=== PATIENT | male | born 1940 | race Caucasian/White ===

== ENCOUNTER 2018-05-10 14:30 | Inpatient (IN) | payer OTHER ==
[~2018-05-10] VITALS: Ht 180.3 cm; Wt 95.0 kg
[~2018-05-10 14:30] MED LIST: AEC81 PO; ALLO300T2 PO; AMLO2.5T3 PO; CLOP75TA14 PO; GEMF600T4 PO; METO-391 PO; OMEP20CA10 PO; PRAV40TA3 PO; RANI150T7 PO; WARF-67 PO
[2018-05-10 14:55] LABS: EOSINOPHILS % (AUTO) 1.4 % (0.0-8.0); HEMATOCRIT 54.7 % (42-54); LYMPHOCYTES % (AUTO) 20.8 % (21.0-51.0); MEAN CORPUSCULAR HEMOGLOBIN 33.7 pg (27.0-33.0); MEAN CORPUSCULAR HGB CONC 34.1 g/dL (32.0-36.0); MEAN CORPUSCULAR VOLUME 98.7 fL (79-99); MONOCYTES % (AUTO) 4.9 % (3.0-13.0); NEUTROPHILS % (AUTO) 71.9 % (40.0-77.0); PLATELET COUNT (AUTO) 158 K/uL (130-400); RED BLOOD CELL COUNT(AUTO) 5.54 MIL/uL (4.50-6.20); RED CELL DISTRIBUTION WIDTH 13.7 % (11.0-15.5); WHITE BLOOD COUNT (AUTO) 8.8 K/uL (4.8-10.8)
[2018-05-10] MEDS ORDERED: ONDANSETRON HCL 4 MG/2 ML VIAL ONE ×3 (14:56→17:00)
[2018-05-10 15:07] LABS: CREATININE 1.4 mg/dL (0.5-1.5); INR 2.32 (0.85-1.15); PARTIAL THROMBOPLASTIN TIME 45.7 SEC (26.3-35.5); POTASSIUM 4.9 mmol/L (3.5-5.1)
[2018-05-10 15:11] LABS: ALBUMIN 4.2 g/dL (3.5-5.0); BILIRUBIN,TOTAL 1.4 mg/dL (0.2-1.0); TOTAL PROTEIN, SERUM 8.5 g/dL (6.0-8.3)
[2018-05-10] MEDS ORDERED: HYDROMORPHONE 1 MG/1 ML AMP ONE ×2 (15:28→19:19)
[2018-05-10 15:37] LABS: AMYLASE 2222 U/L (25-115)
[2018-05-10 15:53] LABS: LIPASE 43712 U/L (114-286)
[2018-05-10] MEDS: SODIUM CHLORIDE 0.9% 1000ML 1,000 ML IV SCH ×2 (16:42→22:55)
[2018-05-10] MEDS ORDERED: ACETAMINOPHEN 325 MG TAB PO PRN (16:45)
[2018-05-10] MEDS ORDERED: PHARMACY COMMUNICATION MISC SCH (17:00)
[2018-05-10] MEDS: METRONIDAZOLE 500MG/100ML BAG 100 ML IV SCH (17:00)
[2018-05-10] MEDS ORDERED: SODIUM CHLORIDE 0.9% 1000ML 1,000 ML IV ONE (17:12)
[2018-05-10] MEDS ORDERED: LEVOFLOXACIN 500 MG/D5W 100 ML 100 ML ONE (17:12)
[2018-05-10] MEDS ORDERED: PROMETHAZINE HCL 25 MG/ML 1ML AMPULE IM ONE (17:13)
[2018-05-10 17:30] LABS: CREATINE KINASE, TOTAL 65 U/L (21-232); MYOGLOBIN 98 ng/mL (10-92); TROPONIN I < 0.04 ng/mL (0.00-0.06)
[2018-05-10] MEDS: LEVOFLOXACIN 500 MG/D5W 100 ML 100 ML IV SCH (18:00)
[2018-05-10] MEDS ORDERED: ONDANSETRON HCL 4 MG/2 ML VIAL IVP PRN (19:45)
[2018-05-10 20:09] VITALS: BP 128/68
[2018-05-10] MEDS: METOPROLOL TARTRATE 50 MG TAB PO SCH ×2 (20:40→21:00)
[2018-05-11] VITALS (7 sets, daily range): BP systolic 100–134; BP diastolic 61–75
[2018-05-11 01:29] LABS: CREATINE KINASE, TOTAL 146 U/L (21-232); MYOGLOBIN 480 ng/mL (10-92); TROPONIN I < 0.04 ng/mL (0.00-0.06)
[2018-05-11] MEDS: MORPHINE SULFATE 5 MG/ML VIAL IV PRN (01:43)
[2018-05-11] MEDS: METRONIDAZOLE 500MG/100ML BAG 100 ML IV SCH ×3 (01:43→16:57)
[2018-05-11] MEDS: SODIUM CHLORIDE 0.9% 1000ML 1,000 ML IV SCH ×2 (05:34→12:18)
[2018-05-11] MEDS: HEPARIN 25000 UNITS/250 ML D5W 250 ML IV PRN (07:31)
[2018-05-11] MEDS ORDERED: AMLODIPINE BESYLATE 5 MG TAB PO ONE (07:33)
[2018-05-11 07:52] LABS: BASOPHILS % (AUTO) 0.1 % (0.0-5.0); HEMATOCRIT 49.8 % (42-54); LYMPHOCYTES % (AUTO) 2.8 % (21.0-51.0); MEAN CORPUSCULAR HEMOGLOBIN 32.4 pg (27.0-33.0); MEAN CORPUSCULAR HGB CONC 32.6 g/dL (32.0-36.0); MEAN CORPUSCULAR VOLUME 99.2 fL (79-99); MONOCYTES % (AUTO) 6.2 % (3.0-13.0); NEUTROPHILS % (AUTO) 90.9 % (40.0-77.0); PLATELET COUNT (AUTO) 110 K/uL (130-400); RED BLOOD CELL COUNT(AUTO) 5.02 MIL/uL (4.50-6.20); WHITE BLOOD COUNT (AUTO) 18.2 K/uL (4.8-10.8)
[2018-05-11 08:09] LABS: INR 1.97 (0.85-1.15); PARTIAL THROMBOPLASTIN TIME 43.3 SEC (26.3-35.5); PROTHROMBIN TIME 20.4 SEC (9.6-11.6)
[2018-05-11] MEDS: ALLOPURINOL 300 MG TABLET PO SCH (08:11)
[2018-05-11] MEDS: ATORVASTATIN CALCIUM 10 MG TABLET PO SCH (08:11)
[2018-05-11] MEDS: PANTOPRAZOLE SODIUM 40 MG TABLET.DR PO SCH (08:11)
[2018-05-11 08:12] LABS: CRP QUANTITATIVE 170.7 mg/L (0.00-9.0)
[2018-05-11] MEDS: AMLODIPINE BESYLATE 2.5 MG TAB PO SCH (08:12)
[2018-05-11] MEDS: METOPROLOL TARTRATE 50 MG TAB PO SCH ×2 (08:12→21:00)
[2018-05-11 08:24] LABS: ALBUMIN 3.3 g/dL (3.5-5.0); BILIRUBIN,TOTAL 1.4 mg/dL (0.2-1.0); CREATININE 2.2 mg/dL (0.5-1.5); POTASSIUM 4.1 mmol/L (3.5-5.1); TOTAL PROTEIN, SERUM 6.9 g/dL (6.0-8.3)
[2018-05-11 08:46] LABS: CREATINE KINASE, TOTAL 164 U/L (21-232); MYOGLOBIN 255 ng/mL (10-92); TROPONIN I < 0.04 ng/mL (0.00-0.06)
[2018-05-11 08:58] LABS: MAGNESIUM 1.2 mg/dL (1.80-2.40)
[2018-05-11 09:06] LABS: BAND NEUTROPHILS % (MANUAL) 23 % (0-2); LYMPHOCYTES % (MANUAL) 2 % (22-44); MAN.DIFF COMMENT-IMPRESSION MANUAL DIFFERENTIAL; MONOCYTES % (MANUAL) 8 % (2-9); PLATELET MORPHOLOGY COMMENT SLIGHTLY DECREASED; REACTIVE LYMPHOCYTES 2 % (0-0); SEGMENTED NEUTROPHILS % 65 % (40-70)
[2018-05-11] MEDS: RANITIDINE HCL 15 MG/1 ML PO SCH (09:29)
[2018-05-11] MEDS ORDERED: POTASSIUM CHLORIDE 20 MEQ ERTAB PO PRN (12:15)
[2018-05-11] MEDS ORDERED: POTASSIUM CHLORIDE 10MEQ/100ML 100 ML IV PRN ×2 (12:15)
[2018-05-11] MEDS ORDERED: POTASSIUM CHLORIDE 10% ELIXIR 20 MEQ/15 ML UDCUP PO PRN (12:15)
[2018-05-11] MEDS ORDERED: LIDOCAINE HCL-MPF 1% 2ML VIAL IVP PRN ×2 (12:15)
[2018-05-11] MEDS: ONDANSETRON HCL 4 MG/2 ML VIAL IV PRN (13:10)
[2018-05-11 16:53] LABS: CREATININE 2.1 mg/dL (0.5-1.5); MAGNESIUM 1.4 mg/dL (1.80-2.40); PHOSPHORUS 4.3 mg/dL (2.5-4.9); POTASSIUM 4.5 mmol/L (3.5-5.1)
[2018-05-11] MEDS: LEVOFLOXACIN 500 MG/D5W 100 ML 100 ML IV SCH (17:52)
[2018-05-11] MEDS: MAGNESIUM 2GM PREMIX 50ML 50 ML IV PRN (19:01)
[2018-05-12] MEDS: METRONIDAZOLE 500MG/100ML BAG 100 ML IV SCH ×3 (01:11→16:15)
[2018-05-12] MEDS: MORPHINE SULFATE 5 MG/ML VIAL IV PRN ×3 (01:12→16:21)
[2018-05-12 02:19] LABS: CREATININE 1.8 mg/dL (0.5-1.5); PHOSPHORUS 2.6 mg/dL (2.5-4.9); POTASSIUM 4.1 mmol/L (3.5-5.1)
[2018-05-12] MEDS: SODIUM CHLORIDE 0.9% 1000ML 1,000 ML IV SCH ×3 (03:00→09:53)
[2018-05-12 04:35] VITALS: BP 120/76
[2018-05-12 08:03] VITALS: BP 133/74
[2018-05-12 08:31] LABS: CRP QUANTITATIVE 253.3 mg/L (0.00-9.0)
[2018-05-12] MEDS: AMLODIPINE BESYLATE 2.5 MG TAB PO SCH (09:00)
[2018-05-12] MEDS: RANITIDINE HCL 15 MG/1 ML PO SCH (09:00)
[2018-05-12] MEDS: PANTOPRAZOLE SODIUM 40 MG TABLET.DR PO SCH ×2 (09:00→21:36)
[2018-05-12] MEDS: ALLOPURINOL 300 MG TABLET PO SCH (09:00)
[2018-05-12] MEDS: METOPROLOL TARTRATE 50 MG TAB PO SCH ×2 (09:00→21:36)
[2018-05-12] MEDS: ATORVASTATIN CALCIUM 10 MG TABLET PO SCH (09:00)
[2018-05-12 12:05] VITALS: BP 122/75
[2018-05-12 16:00] VITALS: BP 115/74
[2018-05-12 17:08] LABS: CREATININE 1.5 mg/dL (0.5-1.5); MAGNESIUM 1.9 mg/dL (1.80-2.40); PHOSPHORUS 2.6 mg/dL (2.5-4.9); POTASSIUM 4.3 mmol/L (3.5-5.1)
[2018-05-12] MEDS: LEVOFLOXACIN 500 MG/D5W 100 ML 100 ML IV SCH (18:12)
[2018-05-12] MEDS: MAGNESIUM 2GM PREMIX 50ML 50 ML IV PRN (18:12)
[2018-05-12 19:59] VITALS: BP 149/84
[2018-05-12] MEDS: ONDANSETRON HCL 4 MG/2 ML VIAL IV PRN (21:36)
[2018-05-12] MEDS: HEPARIN 25000 UNITS/250 ML D5W 250 ML IV PRN (22:33)
[2018-05-13] VITALS: BP 153/78
[2018-05-13] MEDS: SODIUM CHLORIDE 0.9% 1000ML 1,000 ML IV SCH ×3 (00:45→18:17)
[2018-05-13] MEDS: METRONIDAZOLE 500MG/100ML BAG 100 ML IV SCH ×3 (01:03→17:16)
[2018-05-13 03:27] LABS: HEMATOCRIT 44.1 % (42-54); MEAN CORPUSCULAR HEMOGLOBIN 32.9 pg (27.0-33.0); MEAN CORPUSCULAR HGB CONC 33.5 g/dL (32.0-36.0); MEAN CORPUSCULAR VOLUME 98.1 fL (79-99); NUCLEATED RED BLOOD CELLS 0.1 % (0.0-0.19); PLATELET COUNT (AUTO) 99 K/uL (130-400); RED CELL DISTRIBUTION WIDTH 13.6 % (11.0-15.5)
[2018-05-13 03:30] LABS: ALBUMIN 2.9 g/dL (3.5-5.0); BILIRUBIN,TOTAL 0.8 mg/dL (0.2-1.0); CREATININE 1.2 mg/dL (0.5-1.5); MAGNESIUM 2.1 mg/dL (1.80-2.40); PHOSPHORUS 2.6 mg/dL (2.5-4.9); TOTAL PROTEIN, SERUM 6.8 g/dL (6.0-8.3)
[2018-05-13 03:31] LABS: INR 1.14 (0.85-1.15); PARTIAL THROMBOPLASTIN TIME 48.1 SEC (26.3-35.5); PROTHROMBIN TIME 11.9 SEC (9.6-11.6)
[2018-05-13 04:00] VITALS: BP 139/76
[2018-05-13 06:39] LABS: CRP QUANTITATIVE 166.2 mg/L (0.00-9.0)
[2018-05-13 08:18] VITALS: BP 134/84
[2018-05-13] MEDS: METOPROLOL TARTRATE 50 MG TAB PO SCH (09:11)
[2018-05-13] MEDS: ATORVASTATIN CALCIUM 10 MG TABLET PO SCH (09:11)
[2018-05-13] MEDS: RANITIDINE HCL 15 MG/1 ML PO SCH (09:11)
[2018-05-13] MEDS: PANTOPRAZOLE SODIUM 40 MG TABLET.DR PO SCH ×2 (09:12→20:35)
[2018-05-13] MEDS: AMLODIPINE BESYLATE 2.5 MG TAB PO SCH (09:12)
[2018-05-13] MEDS: ALLOPURINOL 300 MG TABLET PO SCH (09:12)
[2018-05-13 12:05] VITALS: BP 138/74
[2018-05-13 16:00] VITALS: BP 133/72
[2018-05-13 16:14] LABS: CREATININE 1.1 mg/dL (0.5-1.5); MAGNESIUM 1.8 mg/dL (1.80-2.40); PHOSPHORUS 2.4 mg/dL (2.5-4.9)
[2018-05-13] MEDS: LEVOFLOXACIN 500 MG/D5W 100 ML 100 ML IV SCH (18:16)
[2018-05-13 20:00] VITALS: BP 139/80
[2018-05-13] MEDS: HEPARIN 25000 UNITS/250 ML D5W 250 ML IV PRN (20:12)
[2018-05-13] MEDS: ONDANSETRON HCL 4 MG/2 ML VIAL IV PRN (20:33)
[2018-05-13] MEDS: MORPHINE SULFATE 5 MG/ML VIAL IV PRN (20:49)
[2018-05-14] VITALS (27 sets, daily range): BP systolic 127–171; BP diastolic 62–89
[2018-05-14] MEDS: METOPROLOL TARTRATE 50 MG TAB PO SCH ×3 (00:18→23:20)
[2018-05-14] MEDS: METRONIDAZOLE 500MG/100ML BAG 100 ML IV SCH ×3 (01:41→17:04)
[2018-05-14] MEDS: SODIUM CHLORIDE 0.9% 1000ML 1,000 ML IV SCH ×3 (01:41→15:03)
[2018-05-14 04:02] LABS: BASOPHILS % (AUTO) 0.5 % (0.0-5.0); EOSINOPHILS % (AUTO) 1.2 % (0.0-8.0); HEMATOCRIT 42.3 % (42-54); LYMPHOCYTES % (AUTO) 16.2 % (21.0-51.0); MEAN CORPUSCULAR HEMOGLOBIN 33.5 pg (27.0-33.0); MEAN CORPUSCULAR HGB CONC 34.1 g/dL (32.0-36.0); MEAN CORPUSCULAR VOLUME 98.3 fL (79-99); MONOCYTES % (AUTO) 7.1 % (3.0-13.0); NUCLEATED RED BLOOD CELLS 0.1 % (0.0-0.19); PLATELET COUNT (AUTO) 108 K/uL (130-400); RED CELL DISTRIBUTION WIDTH 13.8 % (11.0-15.5); WHITE BLOOD COUNT (AUTO) 6.2 K/uL (4.8-10.8)
[2018-05-14 04:15] LABS: INR 1.05 (0.85-1.15); PARTIAL THROMBOPLASTIN TIME 33.4 SEC (26.3-35.5)
[2018-05-14 04:21] LABS: ALBUMIN 2.7 g/dL (3.5-5.0); BILIRUBIN,TOTAL 0.7 mg/dL (0.2-1.0); MAGNESIUM 1.5 mg/dL (1.80-2.40); PHOSPHORUS 2.5 mg/dL (2.5-4.9); POTASSIUM 3.7 mmol/L (3.5-5.1); TOTAL PROTEIN, SERUM 6.2 g/dL (6.0-8.3)
[2018-05-14] MEDS: MAGNESIUM 2GM PREMIX 50ML 50 ML IV PRN ×2 (04:58→17:21)
[2018-05-14 06:44] LABS: CRP QUANTITATIVE 81.1 mg/L (0.00-9.0)
[2018-05-14] MEDS ORDERED: LACTATED RINGERS 1000ML 1,000 ML IV ONE (09:01)
[2018-05-14] MEDS ORDERED: LIDOCAINE PF 2% 5ML ABBOJECT ONE (09:30)
[2018-05-14] MEDS ORDERED: DEXAMETHASONE SOD PHOSPHATE 10MG/ML 1ML VIAL ONE (09:30)
[2018-05-14] MEDS ORDERED: MIDAZOLAM HCL 1 MG/ML 2ML VIAL ONE (09:31)
[2018-05-14] MEDS ORDERED: FENTANYL CITRATE PF 50 MCG/1 ML 2ML VIAL ONE (09:31)
[2018-05-14] MEDS ORDERED: ROCURONIUM 10MG/1ML SYR 10 MG/ML ML ONE (09:31)
[2018-05-14] MEDS ORDERED: NEOSTIGMINE 5MG/5ML SYR IV ONE (09:31)
[2018-05-14] MEDS ORDERED: ONDANSETRON HCL 4 MG/2 ML VIAL ONE (09:31)
[2018-05-14] MEDS ORDERED: PROPOFOL 10 MG/ML 20ML VIAL IV ONE (09:31)
[2018-05-14] MEDS ORDERED: BUPIVACAINE/PF 0.25% 30ML VIAL IJ ONE (09:53)
[2018-05-14] MEDS ORDERED: LIDOCAINE 1%-EPI 1:100,000 20 ML VIAL IJ ONE (09:53)
[2018-05-14] MEDS ORDERED: GLYCOPYRROLATE 1 MG/5 ML SYRINGE ONE (10:27)
[2018-05-14] MEDS ORDERED: MEPERIDINE-PF 25 MG/ML SYG ONE ×2 (10:48→11:06)
[2018-05-14] MEDS ORDERED: IPRATROPIUM/ALBUTEROL SULFATE 3 ML SOLUTION IH ONE (10:48)
[2018-05-14] MEDS: PANTOPRAZOLE SODIUM 40 MG TABLET.DR PO SCH ×2 (14:13→23:20)
[2018-05-14] MEDS: RANITIDINE HCL 15 MG/1 ML PO SCH (14:13)
[2018-05-14] MEDS: AMLODIPINE BESYLATE 2.5 MG TAB PO SCH (14:16)
[2018-05-14] MEDS: ALLOPURINOL 300 MG TABLET PO SCH (14:17)
[2018-05-14] MEDS: ATORVASTATIN CALCIUM 10 MG TABLET PO SCH (14:17)
[2018-05-14 16:48] LABS: CREATININE 1.1 mg/dL (0.5-1.5); MAGNESIUM 1.6 mg/dL (1.80-2.40); PHOSPHORUS 3.3 mg/dL (2.5-4.9)
[2018-05-14] MEDS: LEVOFLOXACIN 500 MG/D5W 100 ML 100 ML IV SCH (17:04)
[2018-05-15] MEDS: METRONIDAZOLE 500MG/100ML BAG 100 ML IV SCH ×3 (01:35→20:14)
[2018-05-15 04:00] VITALS: BP 142/79
[2018-05-15] MEDS: SODIUM CHLORIDE 0.9% 1000ML 1,000 ML IV SCH (05:12)
[2018-05-15 08:10] VITALS: BP 151/87
[2018-05-15] MEDS: OXYCODONE/ACETAMIN 5/325MG TAB PO PRN ×2 (09:01→13:49)
[2018-05-15] MEDS: PANTOPRAZOLE SODIUM 40 MG TABLET.DR PO SCH ×2 (09:01→20:19)
[2018-05-15] MEDS: AMLODIPINE BESYLATE 2.5 MG TAB PO SCH (09:02)
[2018-05-15] MEDS: ATORVASTATIN CALCIUM 10 MG TABLET PO SCH (09:02)
[2018-05-15] MEDS: ALLOPURINOL 300 MG TABLET PO SCH (09:02)
[2018-05-15] MEDS: RANITIDINE HCL 15 MG/1 ML PO SCH (09:02)
[2018-05-15] MEDS: METOPROLOL TARTRATE 50 MG TAB PO SCH ×2 (09:02→20:19)
[2018-05-15 11:37] VITALS: BP 144/99
[2018-05-15 16:45] VITALS: BP 131/68
[2018-05-15] MEDS: LUBIPROSTONE 24 MCG CAP PO SCH ×2 (17:00→17:59)
[2018-05-15] MEDS ORDERED: WARFARIN SODIUM 2 MG TAB PO ONE (18:15)
[2018-05-15 19:34] VITALS: BP 134/72
[2018-05-15] MEDS: LEVOFLOXACIN 500 MG/D5W 100 ML 100 ML IV SCH (20:14)
[2018-05-15] MEDS: ENOXAPARIN SODIUM 100 MG/1 ML SQ SCH (20:14)
[2018-05-15] MEDS: MORPHINE SULFATE 5 MG/ML VIAL IV PRN (22:53)
[2018-05-15 23:31] VITALS: BP 131/66
[2018-05-16 03:28] VITALS: BP 148/76
[2018-05-16 03:56] LABS: INR 1.06 (0.85-1.15); PROTHROMBIN TIME 11.1 SEC (9.6-11.6)
[2018-05-16] MEDS: METRONIDAZOLE 500MG/100ML BAG 100 ML IV SCH ×3 (05:55→21:16)
[2018-05-16 08:10] VITALS: BP 156/85
[2018-05-16] MEDS: LUBIPROSTONE 24 MCG CAP PO SCH ×2 (08:18→16:35)
[2018-05-16] MEDS: AMLODIPINE BESYLATE 2.5 MG TAB PO SCH (08:19)
[2018-05-16] MEDS: ALLOPURINOL 300 MG TABLET PO SCH (08:19)
[2018-05-16] MEDS: ATORVASTATIN CALCIUM 10 MG TABLET PO SCH (08:19)
[2018-05-16] MEDS: RANITIDINE HCL 15 MG/1 ML PO SCH (08:19)
[2018-05-16] MEDS: METOPROLOL TARTRATE 50 MG TAB PO SCH ×2 (08:19→21:15)
[2018-05-16] MEDS: PANTOPRAZOLE SODIUM 40 MG TABLET.DR PO SCH ×2 (08:19→21:15)
[2018-05-16] MEDS: ENOXAPARIN SODIUM 100 MG/1 ML SQ SCH ×2 (08:21→21:16)
[2018-05-16 11:37] VITALS: BP 122/79
[2018-05-16] MEDS ORDERED: WARFARIN SODIUM 2 MG TAB PO SCH (16:00)
[2018-05-16 16:14] VITALS: BP 141/75
[2018-05-16] MEDS: OXYCODONE/ACETAMIN 5/325MG TAB PO PRN (16:35)
[2018-05-16] MEDS: WARFARIN SODIUM 2 MG TAB PO SCH (16:35)
[2018-05-16] MEDS: IPRATROPIUM/ALBUTEROL SULFATE 3 ML SOLUTION IH SCH (18:39)
[2018-05-16 19:54] VITALS: BP 117/72
[2018-05-16] MEDS: GEMFIBROZIL 600 MG TABLET PO SCH (21:16)
[2018-05-16] MEDS: LEVOFLOXACIN 500 MG/D5W 100 ML 100 ML IV SCH (21:16)
[2018-05-16 23:51] VITALS: BP 121/89
[2018-05-17] MEDS: IPRATROPIUM/ALBUTEROL SULFATE 3 ML SOLUTION IH SCH ×4 (00:02→18:00)
[2018-05-17 04:03] VITALS: BP 127/73
[2018-05-17] MEDS: METRONIDAZOLE 500MG/100ML BAG 100 ML IV SCH ×2 (05:06→13:48)
[2018-05-17 08:04] VITALS: BP 133/73
[2018-05-17] MEDS ORDERED: ASPIRIN 81 MG EC TAB PO SCH (09:00)
[2018-05-17] MEDS: METOPROLOL TARTRATE 50 MG TAB PO SCH (09:49)
[2018-05-17] MEDS: PANTOPRAZOLE SODIUM 40 MG TABLET.DR PO SCH (09:49)
[2018-05-17] MEDS: GEMFIBROZIL 600 MG TABLET PO SCH (09:49)
[2018-05-17] MEDS: LUBIPROSTONE 24 MCG CAP PO SCH ×2 (09:49→17:48)
[2018-05-17] MEDS: AMLODIPINE BESYLATE 2.5 MG TAB PO SCH (09:49)
[2018-05-17] MEDS: ALLOPURINOL 300 MG TABLET PO SCH (09:50)
[2018-05-17] MEDS: RANITIDINE HCL 15 MG/1 ML PO SCH (09:50)
[2018-05-17] MEDS: ENOXAPARIN SODIUM 100 MG/1 ML SQ SCH (09:54)
[2018-05-17 11:33] VITALS: BP 119/75
[2018-05-17 16:29] VITALS: BP 135/81
[2018-05-17] MEDS: WARFARIN SODIUM 2 MG TAB PO SCH (17:51)
[2018-05-17] MEDS ORDERED: TRAM50TA4 PO (18:11)
[2018-05-17] MEDS ORDERED: ATORVASTATIN CALCIUM 10 MG TABLET PO SCH (21:00)
[2018-05-18] MEDS ORDERED: CLOPIDOGREL BISULFATE 75 MG TAB PO SCH (09:00)
== END 2018-05-17 19:55 | disposition home or self-care (01) | DRG 417 ==
LOC: EDH 14:30 → EDHIP 16:40 → 2BH 19:39 → 2DH 05-11 15:13
PROVIDERS: ADMIT Internal Medicine; ATTEND Internal Medicine
PROC: 3E0234Z Introduction of Serum, Toxoid and Vaccine into Muscle, Percutaneous Approach (ICD-10-PCS; 2018-05-14)
PROC: 0FT44ZZ Resection of Gallbladder, Percutaneous Endoscopic Approach (ICD-10-PCS; principal; 2018-05-14 09:51)
PROC: 0WQF4ZZ Repair Abdominal Wall, Percutaneous Endoscopic Approach (ICD-10-PCS; 2018-05-14 09:51)
DX: K85.10 Biliary acute pancreatitis without necrosis or infection (principal); R65.11 Systemic inflammatory response syndrome (SIRS) of non-infectious origin with acute organ dysfunction; N17.9 Acute kidney failure, unspecified; J96.11 Chronic respiratory failure with hypoxia; J98.11 Atelectasis; K56.7 Ileus, unspecified; K91.89 Other postprocedural complications and disorders of digestive system; K80.20 Calculus of gallbladder without cholecystitis without obstruction; K82.8 Other specified diseases of gallbladder; E86.1 Hypovolemia; N18.3 Chronic kidney disease, stage 3 (moderate); I12.9 Hypertensive chronic kidney disease with stage 1 through stage 4 chronic kidney disease, or unspecified chronic kidney disease; I25.10 Atherosclerotic heart disease of native coronary artery without angina pectoris; D69.6 Thrombocytopenia, unspecified; E78.5 Hyperlipidemia, unspecified; E83.42 Hypomagnesemia; E86.0 Dehydration; G47.00 Insomnia, unspecified; I71.4 Abdominal aortic aneurysm, without rupture; I73.9 Peripheral vascular disease, unspecified; N28.1 Cyst of kidney, acquired; R79.1 Abnormal coagulation profile; Z79.01 Long term (current) use of anticoagulants; Z79.02 Long term (current) use of antithrombotics/antiplatelets; Z90.49 Acquired absence of other specified parts of digestive tract; Z87.891 Personal history of nicotine dependence; Z86.79 Personal history of other diseases of the circulatory system; Z83.3 Family history of diabetes mellitus; Z82.49 Family history of ischemic heart disease and other diseases of the circulatory system; Z23 Encounter for immunization
CPT/HCPCS: 36415; 71045; 74018; 74176; 74181; 76705; 80048; 80053; 82150; 82550; 82948; 83690; 83735; 83874; 83880; 84100; 84484; 85025; 85027; 85610; 85730; 86140; 88304; 93005; 93306; 94640; 94660; 94664; 99291; J1100; J1170; J1644; J1650; J1956; J2001; J2175; J2250; J2270; J2405; J2550; J2704; J2710; J3010; J3475; J3490; J7030; J7120; Q2038

== ENCOUNTER → 2019-05-26 | Outpatient (CLI) | payer OTHER ==
[~2019-05-26] MED LIST changes: -AMLO2.5T3 PO; +AMLO2.5T4 PO; -GEMF600T4 PO; +GEMF600T5 PO; +OMEP-50 PO; -OMEP20CA10 PO; +TRAM50TA4 PO
== END | disposition home or self-care (01) ==
LOC: SHCH 08:56
PROVIDERS: ATTEND Internal Medicine Cardiovascular Disease
DX: I65.23 Occlusion and stenosis of bilateral carotid arteries (principal); I11.9 Hypertensive heart disease without heart failure; I08.8 Other rheumatic multiple valve diseases
CPT/HCPCS: 93306; 93880

== ENCOUNTER → 2020-05-17 | Outpatient (CLI) | payer OTHER ==
[~2020-05-17] MED LIST changes: -OMEP-50 PO; +OMEP20CA12 PO
== END | disposition home or self-care (01) ==
LOC: SHCH 08:34
PROVIDERS: ATTEND Internal Medicine Cardiovascular Disease
DX: I71.4 Abdominal aortic aneurysm, without rupture (principal)
CPT/HCPCS: 93978

== ENCOUNTER 2021-03-09 03:54 | Emergency (ER) | payer OTHER ==
[~2021-03-09] VITALS: Ht 182.9 cm; Wt 97.5 kg
[2021-03-09] VITALS (9 sets, daily range): BP systolic 152–184; BP diastolic 81–93
[~2021-03-09 03:54] MED LIST changes: -GEMF600T5 PO; +GEMF600T89 PO
[2021-03-09 05:07] LABS: ABG BASE EXCESS -4.6 mmol/L (-2.0-3.0); ABG HCO3 19.6 mmol/L (21.0-28.0); ABG OXYGEN SATURATION 93.4 % (95.0-99.0); ABG PCO2 34 mmHg (35-48)
[2021-03-09 05:09] LABS: BASOPHILS % (AUTO) 1.2 % (0.0-5.0); EOSINOPHILS % (AUTO) 1.6 % (0.0-8.0); HEMATOCRIT 48.7 % (42-54); LYMPHOCYTES % (AUTO) 29.3 % (21.0-51.0); MEAN CORPUSCULAR HEMOGLOBIN 32.6 pg (27.0-33.0); MEAN CORPUSCULAR HGB CONC 34.1 g/dL (32.0-36.0); MEAN CORPUSCULAR VOLUME 95.7 fL (79-99); MONOCYTES % (AUTO) 8.5 % (3.0-13.0); NEUTROPHILS % (AUTO) 55.6 % (40.0-77.0); PLATELET COUNT (AUTO) 146 K/uL (130-400); RED BLOOD CELL COUNT(AUTO) 5.09 MIL/uL (4.50-6.20); RED CELL DISTRIBUTION WIDTH 13.1 % (11.0-15.5); WHITE BLOOD COUNT (AUTO) 4.3 K/uL (4.8-10.8)
[2021-03-09 05:13] LABS: CARBON DIOXIDE 23 mmol/L (21-32); CHLORIDE 103 mmol/L (101-111); CREATININE 1.5 mg/dL (0.5-1.5); GLOMERULAR FILTR. RATE CALC 48 mL/min (>60); GLUCOSE,RANDOM 181 mg/dL (70-105); POTASSIUM 4.4 mmol/L (3.5-5.1); SODIUM SERUM 137 mmol/L (136-145); UREA NITROGEN, BLOOD 19 mg/dL (7-18)
[2021-03-09 05:15] LABS: INR 2.54 (0.85-1.15); PROTHROMBIN TIME 25.4 SEC (9.6-11.6)
[2021-03-09 05:16] LABS: PARTIAL THROMBOPLASTIN TIME 44.8 SEC (26.3-35.5)
[2021-03-09 05:17] LABS: ALANINE AMINOTRANSFERASE 35 U/L (12-78); ALBUMIN 3.6 g/dL (3.5-5.0); ASPARTATE AMINOTRANSFERASE 24 U/L (10-37); BILIRUBIN,TOTAL 0.4 mg/dL (0.2-1.0); CREATINE KINASE, TOTAL 76 U/L (21-232); TOTAL PROTEIN, SERUM 7.2 g/dL (6.0-8.3)
[2021-03-09 05:19] LABS: CRP QUANTITATIVE < 2.00 mg/L (0.00-9.0)
[2021-03-09] MEDS ORDERED: ONDANSETRON 4MG INJ IVP ONE (05:30)
[2021-03-09] MEDS ORDERED: MORPHINE 2 MG SYG IM ONE (05:30)
[2021-03-09] MEDS ORDERED: ACETAMINOPHEN 500 MG TABLET ONE (06:14)
[2021-03-09] MEDS ORDERED: ACETAMINOPHEN 500 MG TABLET PO ONE ×2 (06:30→12:00)
[2021-03-09] MEDS ORDERED: NICARDIPINE 25MG INJ 50 MG in 0.9% NACL 250ML 230 ML IV SCH (06:30)
[2021-03-09 06:32] LABS: APPEARANCE,URINE Clear (CLEAR); BILIRUBIN,URINE Negative (NEGATIVE); COLOR,URINE Yellow (YELLOW); GLUCOSE, URINE (UA) Negative (NEGATIVE); KETONES,URINE Negative (NEGATIVE); LEUKOCYTE ESTERASE ,URINE Negative (NEGATIVE); NITRATE,URINE Negative (NEGATIVE); OCCULT BLOOD,URINE Negative (NEGATIVE); PH,URINE 5.5 (5.0-8.0); PROTEIN,URINE Negative (NEGATIVE); UROBILINOGEN,URINE 0.2 mg/dL (0.2-1.0)
[2021-03-09] MEDS ORDERED: IOHEXOL-350 75 ML VIAL IV ONE (07:55)
[2021-03-09] MEDS ORDERED: ACETAMINOPHEN 325 MG TAB ONE ×2 (12:01→17:05)
[2021-03-09] MEDS ORDERED: ACETAMINOPHEN 325 MG TAB PO ONE (16:30)
[2021-03-10 00:16] VITALS: BP 149/87
[2021-03-10] MEDS ORDERED: KETOROLAC 15MG/ML VIAL (15MG/ML) IV ONE (00:30)
[2021-03-10] MEDS ORDERED: SOLU-MEDROL 125MG VIAL IVP ONE (00:30)
[2021-03-10] MEDS ORDERED: 0.9% NACL 500ML IV.SOLN 500 ML IV ONE (00:30)
[2021-03-10] MEDS ORDERED: DiphenhydrAMINE HCL 50 MG/ML VIAL IV ONE (00:30)
[2021-03-10] MEDS ORDERED: PROCHLORPERAZINE EDISYLATE 5 MG/ML 2 ML VIAL IVP ONE (00:30)
[2021-03-10 01:00] VITALS: BP_SYST 144; BP_SYST 149; BP_DIAS 85; BP_DIAS 87
[2021-03-10 03:00] VITALS: BP 150/81
[2021-03-10 05:07] VITALS: BP 161/80
[2021-03-10 06:42] VITALS: BP 140/80
[2021-03-10 09:04] VITALS: BP 146/84
== END 2021-03-10 09:30 | disposition home or self-care (01) ==
LOC: EDH 03:54
DX: I63.9 Cerebral infarction, unspecified (principal); H53.2 Diplopia; R27.0 Ataxia, unspecified; I12.9 Hypertensive chronic kidney disease with stage 1 through stage 4 chronic kidney disease, or unspecified chronic kidney disease; N18.30 Chronic kidney disease, stage 3 unspecified; I25.10 Atherosclerotic heart disease of native coronary artery without angina pectoris; E78.00 Pure hypercholesterolemia, unspecified; Z87.442 Personal history of urinary calculi; Z95.0 Presence of cardiac pacemaker; Z98.890 Other specified postprocedural states; Z79.01 Long term (current) use of anticoagulants; Z79.82 Long term (current) use of aspirin; Z79.899 Other long term (current) drug therapy; Z20.822 Contact with and (suspected) exposure to COVID-19
CPT/HCPCS: 36415; 36600; 70450; 70496; 70551; 71045; 80053; 81003; 82550; 82803; 83605; 83735; 84484; 85025; 85610; 85651; 85730; 86140 ×2; 87040 ×2; 87088; 87635; 93005; 96374; 96375; 99284; C9803; J1200; J1885; J2405; J2930; J3490; J7050; Q9967

== ENCOUNTER 2021-09-12 23:55 | Emergency (ER) | payer OTHER ==
[~2021-09-12] VITALS: Ht 182.9 cm; Wt 93.4 kg
[2021-09-13 00:33] LABS: CREATININE 1.4 mg/dL (0.5-1.5); POTASSIUM 4.1 mmol/L (3.5-5.1)
[2021-09-13 00:37] LABS: ALBUMIN 3.9 g/dL (3.5-5.0); BILIRUBIN,TOTAL 0.6 mg/dL (0.2-1.0); TOTAL PROTEIN, SERUM 7.5 g/dL (6.0-8.3)
[2021-09-13 00:38] LABS: BASOPHILS % (AUTO) 0.9 % (0.0-5.0); EOSINOPHILS % (AUTO) 3.5 % (0.0-8.0); HEMATOCRIT 50.6 % (42-54); LYMPHOCYTES % (AUTO) 35.8 % (21.0-51.0); MEAN CORPUSCULAR HEMOGLOBIN 31.5 pg (27.0-33.0); MEAN CORPUSCULAR VOLUME 95.3 fL (79-99); MONOCYTES % (AUTO) 8.4 % (3.0-13.0); NEUTROPHILS % (AUTO) 49.4 % (40.0-77.0); PLATELET COUNT (AUTO) 152 K/uL (130-400); RED BLOOD CELL COUNT(AUTO) 5.31 MIL/uL (4.50-6.20); RED CELL DISTRIBUTION WIDTH 13.5 % (11.0-15.5); WHITE BLOOD COUNT (AUTO) 5.4 K/uL (4.8-10.8)
[2021-09-13] MEDS ORDERED: LIDOCAINE HCL 2% VISCOUS 15 ML UDCUP ONE (00:52)
[2021-09-13 01:03] LABS: INR 3.2 (0.85-1.15); PROTHROMBIN TIME 31.4 SEC (9.6-11.6)
[2021-09-13 01:04] LABS: PARTIAL THROMBOPLASTIN TIME 54.2 SEC (26.3-35.5)
[2021-09-13] MEDS ORDERED: AMOXICILLIN 500 MG CAPSULE PO ONE (02:26)
[2021-09-13] MEDS ORDERED: AMOX500C2 PO (02:30)
[2021-09-13 02:35] VITALS: BP 144/81
== END 2021-09-13 02:49 | disposition home or self-care (01) ==
LOC: EDH 23:55
DX: R04.0 Epistaxis (principal); E78.00 Pure hypercholesterolemia, unspecified; D68.9 Coagulation defect, unspecified; I10 Essential (primary) hypertension; I25.10 Atherosclerotic heart disease of native coronary artery without angina pectoris; M10.9 Gout, unspecified; Z79.01 Long term (current) use of anticoagulants; Z79.82 Long term (current) use of aspirin; Z79.899 Other long term (current) drug therapy; Z82.49 Family history of ischemic heart disease and other diseases of the circulatory system; Z86.73 Personal history of transient ischemic attack (TIA), and cerebral infarction without residual deficits; Z87.442 Personal history of urinary calculi; Z95.1 Presence of aortocoronary bypass graft; Z95.5 Presence of coronary angioplasty implant and graft
CPT/HCPCS: 30901; 36415; 80053; 85025; 85610; 85730

== ENCOUNTER → 2021-10-30 | Outpatient (CLI) | payer OTHER ==
[~2021-10-30] MED LIST changes: +AMOX500C2 PO
== END | disposition home or self-care (01) ==
LOC: SHCH 08:15
PROVIDERS: ATTEND Internal Medicine Cardiovascular Disease
DX: I65.23 Occlusion and stenosis of bilateral carotid arteries (principal); I71.4 Abdominal aortic aneurysm, without rupture; Z95.828 Presence of other vascular implants and grafts
CPT/HCPCS: 93880; 93978

== ENCOUNTER 2022-01-02 12:57 | Emergency (ER) | payer OTHER ==
[~2022-01-02] VITALS: Ht 185.4 cm; Wt 90.7 kg
[2022-01-02] MEDS ORDERED: ACETAMINOPHEN 500 MG TABLET PO ONE (13:00)
[2022-01-02 13:02] VITALS: BP 147/104
[2022-01-02 13:16] LABS: BASOPHILS % (AUTO) 0.5 % (0.0-5.0); EOSINOPHILS % (AUTO) 1.7 % (0.0-8.0); HEMATOCRIT 49.3 % (42-54); MEAN CORPUSCULAR HEMOGLOBIN 30.7 pg (27.0-33.0); MEAN CORPUSCULAR HGB CONC 34.1 g/dL (32.0-36.0); MEAN CORPUSCULAR VOLUME 90.1 fL (79-99); MONOCYTES % (AUTO) 7.3 % (3.0-13.0); NEUTROPHILS % (AUTO) 68.3 % (40.0-77.0); PLATELET COUNT (AUTO) 168 K/uL (130-400); RED BLOOD CELL COUNT(AUTO) 5.47 MIL/uL (4.50-6.20); WHITE BLOOD COUNT (AUTO) 6.3 K/uL (4.8-10.8)
[2022-01-02 13:31] LABS: CARBON DIOXIDE 20 mmol/L (21-32); CHLORIDE 102 mmol/L (101-111); CREATININE 1.4 mg/dL (0.5-1.5); GLOMERULAR FILTR. RATE CALC 52 mL/min (>60); GLUCOSE,RANDOM 117 mg/dL (70-105); SODIUM SERUM 136 mmol/L (136-145); UREA NITROGEN, BLOOD 21 mg/dL (7-18)
[2022-01-02 13:41] LABS: ALANINE AMINOTRANSFERASE 24 U/L (12-78); ASPARTATE AMINOTRANSFERASE 26 U/L (10-37); BILIRUBIN,TOTAL 0.6 mg/dL (0.2-1.0); TOTAL PROTEIN, SERUM 7.4 g/dL (6.0-8.3)
[2022-01-02 13:42] LABS: CRP QUANTITATIVE < 2.00 mg/L (0.00-9.0)
[2022-01-02 13:52] LABS: B-TYPE NATRIURETIC PEPTIDE 22 pg/mL (0-100)
[2022-01-02] MEDS ORDERED: KETOROLAC 15MG/ML VIAL (15MG/ML) IV ONE (14:30)
[2022-01-02] MEDS ORDERED: CYCLOBENZAPRINE HCL 10 MG TABLET PO ONE (14:30)
== END 2022-01-02 16:17 | disposition home or self-care (01) ==
LOC: EDH 12:57
DX: G43.909 Migraine, unspecified, not intractable, without status migrainosus (principal); I25.10 Atherosclerotic heart disease of native coronary artery without angina pectoris; E78.00 Pure hypercholesterolemia, unspecified; Z86.73 Personal history of transient ischemic attack (TIA), and cerebral infarction without residual deficits; I10 Essential (primary) hypertension; Z95.1 Presence of aortocoronary bypass graft
CPT/HCPCS: 36415; 70450; 71045; 80053; 83880; 85025; 84484; 86140; 93005; 96374; 99284; J1885

== ENCOUNTER → 2022-06-10 | Outpatient (CLI) | payer OTHER ==
[~2022-06-10] MED LIST changes: +CLOP-31 PO; -CLOP75TA14 PO; +REGADENOSON 0.4 MG/5 ML PF SYG IVP SCH; +TRAM1TAB2 PO
== END | disposition home or self-care (01) ==
LOC: SHCH 08:35
PROVIDERS: ATTEND Internal Medicine Cardiovascular Disease
DX: Z01.810 Encounter for preprocedural cardiovascular examination (principal); K40.90 Unilateral inguinal hernia, without obstruction or gangrene, not specified as recurrent; I10 Essential (primary) hypertension; Z95.5 Presence of coronary angioplasty implant and graft; Z95.1 Presence of aortocoronary bypass graft; Z82.49 Family history of ischemic heart disease and other diseases of the circulatory system; Z79.01 Long term (current) use of anticoagulants; Z79.02 Long term (current) use of antithrombotics/antiplatelets; Z79.899 Other long term (current) drug therapy
CPT/HCPCS: 78452; 93017; J2785; A9500 ×2; 96374

== ENCOUNTER 2022-11-14 11:02 | Emergency (ER) | payer OTHER ==
[~2022-11-14] VITALS: Ht 182.9 cm; Wt 87.1 kg
[~2022-11-14 11:02] MED LIST changes: -REGADENOSON 0.4 MG/5 ML PF SYG IVP SCH
[2022-11-14 11:50] LABS: BASOPHILS % (AUTO) 0.7 % (0.0-5.0); EOSINOPHILS % (AUTO) 1.6 % (0.0-8.0); HEMATOCRIT 51.3 % (42-54); LYMPHOCYTES % (AUTO) 24.1 % (21.0-51.0); MEAN CORPUSCULAR HEMOGLOBIN 31.5 pg (27.0-33.0); MEAN CORPUSCULAR HGB CONC 33.1 g/dL (32.0-36.0); MEAN CORPUSCULAR VOLUME 95.2 fL (79-99); MONOCYTES % (AUTO) 6.1 % (3.0-13.0); NEUTROPHILS % (AUTO) 66.1 % (40.0-77.0); PLATELET COUNT (AUTO) 135 K/uL (130-400); RED BLOOD CELL COUNT(AUTO) 5.39 MIL/uL (4.50-6.20); WHITE BLOOD COUNT (AUTO) 5.7 K/uL (4.8-10.8)
[2022-11-14 11:54] LABS: CREATININE 1.4 mg/dL (0.5-1.5); POTASSIUM 4.1 mmol/L (3.5-5.1)
[2022-11-14 11:58] LABS: ALBUMIN 4.3 g/dL (3.5-5.0); TOTAL PROTEIN, SERUM 7.7 g/dL (6.0-8.3)
[2022-11-14 12:09] LABS: APPEARANCE,URINE CLEAR (CLEAR); BILIRUBIN,URINE NEGATIVE (NEGATIVE); COLOR,URINE YELLOW (YELLOW); GLUCOSE, URINE (UA) NEGATIVE (NEGATIVE); KETONES,URINE NEGATIVE (NEGATIVE); LEUKOCYTE ESTERASE ,URINE NEGATIVE Leu/uL (NEGATIVE); NITRATE,URINE NEGATIVE (NEGATIVE); OCCULT BLOOD,URINE NEGATIVE (NEGATIVE); PH,URINE 5.5 (5.0-8.0); PROTEIN,URINE NEGATIVE (NEGATIVE); UROBILINOGEN,URINE 0.2 mg/dL (0.2-1.0)
[2022-11-14] MEDS ORDERED: MORPHINE 2 MG SYG IVP ONE (15:00)
[2022-11-14] MEDS ORDERED: BISA10SU11 RC (15:50)
[2022-11-14 16:06] VITALS: BP 149/78
== END 2022-11-14 16:07 | disposition home or self-care (01) ==
LOC: EDH 11:02
DX: R10.30 Lower abdominal pain, unspecified (principal); K59.00 Constipation, unspecified; I10 Essential (primary) hypertension; E78.00 Pure hypercholesterolemia, unspecified; M10.9 Gout, unspecified; Z79.899 Other long term (current) drug therapy; Z95.1 Presence of aortocoronary bypass graft; Z98.890 Other specified postprocedural states
CPT/HCPCS: 36415; 80053; 81003; 83690; 85025

== ENCOUNTER 2022-12-10 07:57 | Emergency (ER) | payer OTHER ==
[~2022-12-10] VITALS: Ht 182.9 cm; Wt 87.1 kg
[~2022-12-10 07:57] MED LIST changes: +BISA10SU11 RC
[2022-12-10 09:27] LABS: BASOPHILS % (AUTO) 0.6 % (0.0-5.0); EOSINOPHILS % (AUTO) 1.5 % (0.0-8.0); HEMATOCRIT 51.2 % (42-54); LYMPHOCYTES % (AUTO) 23.9 % (21.0-51.0); MEAN CORPUSCULAR HEMOGLOBIN 31.6 pg (27.0-33.0); MEAN CORPUSCULAR VOLUME 95.7 fL (79-99); MONOCYTES % (AUTO) 7.2 % (3.0-13.0); NEUTROPHILS % (AUTO) 65.1 % (40.0-77.0); PLATELET COUNT (AUTO) 150 K/uL (130-400); RED BLOOD CELL COUNT(AUTO) 5.35 MIL/uL (4.50-6.20); RED CELL DISTRIBUTION WIDTH 13.1 % (11.0-15.5); WHITE BLOOD COUNT (AUTO) 5.3 K/uL (4.8-10.8)
[2022-12-10 09:30] LABS: APPEARANCE,URINE CLEAR (CLEAR); BILIRUBIN,URINE NEGATIVE (NEGATIVE); COLOR,URINE YELLOW (YELLOW); GLUCOSE, URINE (UA) NEGATIVE (NEGATIVE); KETONES,URINE NEGATIVE (NEGATIVE); LEUKOCYTE ESTERASE ,URINE NEGATIVE Leu/uL (NEGATIVE); NITRATE,URINE NEGATIVE (NEGATIVE); OCCULT BLOOD,URINE NEGATIVE (NEGATIVE); PH,URINE 5.5 (5.0-8.0); PROTEIN,URINE NEGATIVE (NEGATIVE); UROBILINOGEN,URINE 0.2 mg/dL (0.2-1.0)
[2022-12-10 09:44] LABS: CREATININE 1.4 mg/dL (0.5-1.5); POTASSIUM 4.2 mmol/L (3.5-5.1); TOTAL PROTEIN, SERUM 7.7 g/dL (6.0-8.3)
[2022-12-10] MEDS ORDERED: 0.9%NACL 1000ML 1,000 ML IV ONE (10:00)
[2022-12-10 10:06] VITALS: BP 157/84
[2022-12-10] MEDS ORDERED: IOHEXOL-350 75 ML VIAL IV ONE (10:45)
== END 2022-12-10 11:55 | disposition home or self-care (01) ==
LOC: EDH 07:57
DX: R10.84 Generalized abdominal pain (principal); R53.1 Weakness; I10 Essential (primary) hypertension; E78.00 Pure hypercholesterolemia, unspecified; K62.89 Other specified diseases of anus and rectum; N28.1 Cyst of kidney, acquired; Z79.82 Long term (current) use of aspirin; Z79.899 Other long term (current) drug therapy; Z95.1 Presence of aortocoronary bypass graft; Z98.890 Other specified postprocedural states
CPT/HCPCS: 99284; 74177; 96360; 80053; 83690; 85025; 81003; 36415; Q9967

== ENCOUNTER 2023-01-03 05:59 | Observation (INO) | payer OTHER ==
[~2023-01-03] VITALS: Ht 182.9 cm; Wt 87.4 kg
[2023-01-03 06:33] LABS: BASOPHILS % (AUTO) 0.3 % (0.0-5.0); EOSINOPHILS % (AUTO) 1.5 % (0.0-8.0); HEMATOCRIT 46.8 % (42-54); LYMPHOCYTES % (AUTO) 21.2 % (21.0-51.0); MEAN CORPUSCULAR HEMOGLOBIN 31.7 pg (27.0-33.0); MEAN CORPUSCULAR VOLUME 93.2 fL (79-99); MONOCYTES % (AUTO) 11.7 % (3.0-13.0); NEUTROPHILS % (AUTO) 64.5 % (40.0-77.0); PLATELET COUNT (AUTO) 112 K/uL (130-400); RED BLOOD CELL COUNT(AUTO) 5.02 MIL/uL (4.50-6.20); RED CELL DISTRIBUTION WIDTH 13.1 % (11.0-15.5); WHITE BLOOD COUNT (AUTO) 6.1 K/uL (4.8-10.8)
[2023-01-03 07:14] LABS: ALBUMIN 3.6 g/dL (3.5-5.0); CREATININE 1.2 mg/dL (0.5-1.5); POTASSIUM 3.8 mmol/L (3.5-5.1)
[2023-01-03] MEDS ORDERED: METOCLOPRAMIDE 10 MG/2 ML VIAL IVP ONE (08:00)
[2023-01-03] MEDS ORDERED: LACTATED RINGERS 1000ML 2,328 ML IV ONE (08:00)
[2023-01-03] MEDS ORDERED: DEXAMETHASONE SOD PHOSPHATE 4 MG/ML 1ML VIAL IVP ONE (08:00)
[2023-01-03] MEDS ORDERED: KETOROLAC 30MG VIAL (30MG/ML) IVP ONE (08:00)
[2023-01-03] MEDS ORDERED: FAMOTIDINE 20MG VIAL IV ONE (08:00)
[2023-01-03] MEDS ORDERED: ACETAMINOPHEN 325 MG TAB PO PRN (15:30)
[2023-01-03] MEDS ORDERED: ONDANSETRON 4MG INJ IVP PRN (15:30)
[2023-01-03] MEDS ORDERED: 0.9%NACL 50ML IV SCH (15:30)
[2023-01-03] MEDS ORDERED: DIPHENOXYLATE HCL/ATROPINE 2.5/0.025 MG TAB PO ONE (15:30)
[2023-01-03] MEDS ORDERED: CLONIDINE HCL 0.1 MG TABLET PO PRN (15:30)
[2023-01-03] MEDS ORDERED: ACETAMINOPHEN 650 MG SUPPOSITORY RC PRN (15:30)
[2023-01-03] MEDS ORDERED: IPRATROPIUM/ALBUTEROL SULFATE 3 ML SOLUTION IH PRN (15:30)
[2023-01-03] MEDS: ZOSYN 3.375GM +NS 50ML IVPB SCH ×2 (18:02→20:35)
[2023-01-03] MEDS: LACTATED RINGERS 1000ML 1,000 ML IV SCH ×2 (18:02→23:48)
[2023-01-03 18:20] LABS: APPEARANCE,URINE CLEAR (CLEAR); BILIRUBIN,URINE NEGATIVE (NEGATIVE); COLOR,URINE LIGHT-YELLOW (YELLOW); GLUCOSE, URINE (UA) NEGATIVE (NEGATIVE); KETONES,URINE NEGATIVE (NEGATIVE); LEUKOCYTE ESTERASE ,URINE NEGATIVE Leu/uL (NEGATIVE); NITRATE,URINE NEGATIVE (NEGATIVE); OCCULT BLOOD,URINE NEGATIVE (NEGATIVE); PROTEIN,URINE NEGATIVE (NEGATIVE); UROBILINOGEN,URINE 0.2 mg/dL (0.2-1.0)
[2023-01-03 19:48] VITALS: BP 156/94
[2023-01-03] MEDS: LEVETIRACETAM 500 MG TABLET PO SCH (19:52)
[2023-01-04] VITALS: BP 136/71
[2023-01-04] MEDS: TEMAZEPAM 15 MG CAPSULE PO PRN (03:07)
[2023-01-04 03:57] LABS: BASOPHILS % (AUTO) 0.2 % (0.0-5.0); EOSINOPHILS % (AUTO) 0.4 % (0.0-8.0); MEAN CORPUSCULAR HEMOGLOBIN 31.7 pg (27.0-33.0); MEAN CORPUSCULAR VOLUME 93.2 fL (79-99); MONOCYTES % (AUTO) 7.6 % (3.0-13.0); NEUTROPHILS % (AUTO) 69.1 % (40.0-77.0); PLATELET COUNT (AUTO) 120 K/uL (130-400); RED BLOOD CELL COUNT(AUTO) 4.83 MIL/uL (4.50-6.20); RED CELL DISTRIBUTION WIDTH 12.7 % (11.0-15.5); WHITE BLOOD COUNT (AUTO) 4.6 K/uL (4.8-10.8)
[2023-01-04 04:00] VITALS: BP 144/93
[2023-01-04 04:27] LABS: CREATININE 1.2 mg/dL (0.5-1.5); MAGNESIUM 1.6 mg/dL (1.80-2.40); PHOSPHORUS 3.2 mg/dL (2.5-4.9); POTASSIUM 4.1 mmol/L (3.5-5.1); THYROID STIMULATING HORMONE 1.17 uIU/mL (0.36-3.74)
[2023-01-04 04:30] LABS: B-TYPE NATRIURETIC PEPTIDE 77 pg/mL (0-100)
[2023-01-04] MEDS: ZOSYN 3.375GM +NS 50ML IVPB SCH ×3 (04:54→21:23)
[2023-01-04] MEDS ORDERED: MAGNESIUM 2GM PREMIX 50ML 50 ML IV PRN (05:00)
[2023-01-04] MEDS: LACTATED RINGERS 1000ML 1,000 ML IV SCH ×2 (06:59→21:23)
[2023-01-04 07:30] VITALS: BP 159/89
[2023-01-04] MEDS ORDERED: ENOXAPARIN SODIUM 30 MG/0.3 ML SQ SCH (09:00)
[2023-01-04] MEDS: ASCORBIC ACID 500 MG TAB PO SCH (10:16)
[2023-01-04] MEDS: DEXAMETHASONE SOD PHOSPHATE 10MG/ML 1ML VIAL IVP SCH (10:16)
[2023-01-04] MEDS: LEVETIRACETAM 500 MG TABLET PO SCH ×2 (10:16→21:23)
[2023-01-04] MEDS: ASPIRIN 81MG CHEW TAB PO SCH (10:16)
[2023-01-04 11:30] VITALS: BP 114/82
[2023-01-04 15:30] VITALS: BP 151/73
[2023-01-04] MEDS ORDERED: FOLI400T4 PO (18:17)
[2023-01-04] MEDS ORDERED: PRAV80TA21 PO (18:17)
[2023-01-04] MEDS ORDERED: LEVE10006 PO (18:17)
[2023-01-04] MEDS ORDERED: PANT40TA54 PO (18:17)
[2023-01-04] MEDS ORDERED: METO-408 PO (18:17)
[2023-01-04] MEDS ORDERED: METH-350 PO (18:17)
[2023-01-04 20:00] VITALS: BP 151/70
[2023-01-04] MEDS ORDERED: WARF6TAB49 PO (20:04)
[2023-01-04] MEDS ORDERED: METOPROLOL TARTRATE 25 MG TAB PO ONE (21:00)
[2023-01-04] MEDS ORDERED: LEVETIRACETAM 500 MG TABLET PO SCH (21:00)
[2023-01-04] MEDS ORDERED: Pravastatin Sodium 80 MG PO SCH (21:00)
[2023-01-04] MEDS: GEMFIBROZIL 600 MG TABLET PO SCH (21:23)
[2023-01-05] VITALS: BP 154/79
[2023-01-05] MEDS: TEMAZEPAM 15 MG CAPSULE PO PRN (00:59)
[2023-01-05] MEDS: LACTATED RINGERS 1000ML 1,000 ML IV SCH (02:31)
[2023-01-05 04:00] VITALS: BP 151/75
[2023-01-05 04:36] LABS: BASOPHILS % (AUTO) 0.4 % (0.0-5.0); EOSINOPHILS % (AUTO) 0.4 % (0.0-8.0); HEMATOCRIT 42.8 % (42-54); LYMPHOCYTES % (AUTO) 20.8 % (21.0-51.0); MEAN CORPUSCULAR HGB CONC 34.1 g/dL (32.0-36.0); MEAN CORPUSCULAR VOLUME 93.9 fL (79-99); MONOCYTES % (AUTO) 6.9 % (3.0-13.0); NEUTROPHILS % (AUTO) 70.8 % (40.0-77.0); PLATELET COUNT (AUTO) 133 K/uL (130-400); RED BLOOD CELL COUNT(AUTO) 4.56 MIL/uL (4.50-6.20); RED CELL DISTRIBUTION WIDTH 12.7 % (11.0-15.5); WHITE BLOOD COUNT (AUTO) 5.6 K/uL (4.8-10.8)
[2023-01-05] MEDS: ZOSYN 3.375GM +NS 50ML IVPB SCH (04:44)
[2023-01-05 04:45] LABS: INR 1.29 (0.85-1.15); PROTHROMBIN TIME 13.9 SEC (9.6-11.6)
[2023-01-05 04:47] LABS: PARTIAL THROMBOPLASTIN TIME 34.7 SEC (26.3-35.5)
[2023-01-05 04:49] LABS: CREATININE 1.1 mg/dL (0.5-1.5); POTASSIUM 4.1 mmol/L (3.5-5.1)
[2023-01-05 07:30] VITALS: BP 137/78
[2023-01-05] MEDS ORDERED: METOPROLOL SUCCINATE 25 MG TAB.SR.24H PO SCH (09:00)
[2023-01-05] MEDS ORDERED: VITAMIN B COMPLEX 1 CAPSULE PO SCH (09:00)
[2023-01-05] MEDS ORDERED: PANTOPRAZOLE 40 MG TAB DR PO SCH (09:00)
[2023-01-05] MEDS ORDERED: PSYLLIUM SEED 1 EACH PACKET PO SCH (09:00)
[2023-01-05] MEDS: GEMFIBROZIL 600 MG TABLET PO SCH (10:37)
[2023-01-05] MEDS: LEVETIRACETAM 500 MG TABLET PO SCH (10:37)
[2023-01-05] MEDS: ASCORBIC ACID 500 MG TAB PO SCH (10:37)
[2023-01-05] MEDS: ASPIRIN 81MG CHEW TAB PO SCH (10:38)
[2023-01-05] MEDS: DEXAMETHASONE SOD PHOSPHATE 10MG/ML 1ML VIAL IVP SCH (10:38)
[2023-01-05 11:30] VITALS: BP 146/96
[2023-01-05] MEDS ORDERED: AMOX-426 PO (12:09)
[2023-01-05] MEDS ORDERED: DEXA6TAB PO (12:09)
[2023-01-05] MEDS ORDERED: ALBUHFA IH (12:09)
[2023-01-05] MEDS ORDERED: WARFARIN SODIUM 2 MG TAB PO SCH (16:00)
[2023-01-05] MEDS ORDERED: ATORVASTATIN 40 MG TABLET PO SCH (21:00)
[2023-01-06] MEDS ORDERED: CLOPIDOGREL 75MG TAB PO SCH (09:00)
[2023-01-06] MEDS ORDERED: WARFARIN SODIUM 2 MG TAB PO SCH (16:00)
[2023-01-11] MEDS ORDERED: WARFARIN SODIUM 2 MG TAB PO SCH (16:00)
== END 2023-01-05 14:39 | disposition home or self-care (01) ==
LOC: EDH 05:59 → INTOOBSV 13:49 → EDHIP 13:49 → 4CH 19:57
PROVIDERS: ADMIT Internal Medicine Pulmonary Disease; ATTEND Internal Medicine Pulmonary Disease
DX: U07.1 COVID-19 (principal); J96.01 Acute respiratory failure with hypoxia; E86.0 Dehydration; D69.6 Thrombocytopenia, unspecified; I10 Essential (primary) hypertension; E78.5 Hyperlipidemia, unspecified; I25.10 Atherosclerotic heart disease of native coronary artery without angina pectoris; I73.9 Peripheral vascular disease, unspecified; I71.40 Abdominal aortic aneurysm, without rupture, unspecified; M10.9 Gout, unspecified; E78.00 Pure hypercholesterolemia, unspecified; I44.7 Left bundle-branch block, unspecified; K52.9 Noninfective gastroenteritis and colitis, unspecified; K40.20 Bilateral inguinal hernia, without obstruction or gangrene, not specified as recurrent; Z86.73 Personal history of transient ischemic attack (TIA), and cerebral infarction without residual deficits; Z86.79 Personal history of other diseases of the circulatory system; Z87.891 Personal history of nicotine dependence; Z95.1 Presence of aortocoronary bypass graft
CPT/HCPCS: 96361 ×2; 96365; 96366 ×3; 96375; 99285; 82550 ×3; 83874 ×3; 84484 ×4; 80053; 85025 ×3; 87040 ×2; 87804 ×2; 83605; 81003; 36415 ×3; 87635; 71045; 93005; 94664; 96376 ×2; 96372; 96368; 84443; 83735 ×2; 84100; 80048 ×2; 83880; 85378; 82948 ×6; 93970; 84145; 85610; 85730; J1100 ×3; C9803; J7120; J3490; J1885; J2543 ×6; J2765; J3475; J1650; G0378 ×2

== ENCOUNTER 2023-03-29 06:12 | Emergency (ER) | payer OTHER ==
[~2023-03-29] VITALS: Ht 182.9 cm; Wt 82.6 kg
[~2023-03-29 06:12] MED LIST changes: -AEC81 PO; +ALBUHFA IH; -ALLO300T2 PO; -AMLO2.5T4 PO; -AMOX500C2 PO; -BISA10SU11 RC; +DEXA4 PO; +ENOX80DI8 SQ; +FOLI400T4 PO; +LEVE10006 PO; +METH-350 PO; -METO-391 PO; +METO-408 PO; -OMEP20CA12 PO; +PANT40TA54 PO; +POLY17PO4 PO; -PRAV40TA3 PO; +PRAV80TA21 PO; -RANI150T7 PO; -TRAM1TAB2 PO; -TRAM50TA4 PO; -WARF-67 PO; +WARF6TAB49 PO
[2023-03-29] MEDS ORDERED: MECLIZINE HCL 25 MG TABLET PO ONE (07:00)
[2023-03-29 07:10] LABS: BASOPHILS # (AUTO) 0.04 K/uL (0.00-0.20); BASOPHILS % (AUTO) 0.9 % (0.0-5.0); EOSINOPHILS % (AUTO) 2.2 % (0.0-8.0); HEMATOCRIT 47.1 % (42-54); IMMATURE GRANULOCYTE ABSOLUTE 0.13 K/uL (0-1); LYMPHOCYTES # (AUTO) 1.4 K/uL (1.0-4.8); LYMPHOCYTES % (AUTO) 30.4 % (21.0-51.0); MEAN CORPUSCULAR HEMOGLOBIN 32.2 pg (27.0-33.0); MEAN CORPUSCULAR HGB CONC 34.6 g/dL (32.0-36.0); MEAN CORPUSCULAR VOLUME 93.1 fL (79-99); MONOCYTES # (AUTO) 0.4 K/uL (0.1-1.0); MONOCYTES % (AUTO) 8.4 % (3.0-13.0); NEUTROPHILS # (AUTO) 2.6 K/uL (1.8-7.7); NEUTROPHILS % (AUTO) 55.3 % (40.0-77.0); PLATELET COUNT (AUTO) 154 K/uL (130-400); RED BLOOD CELL COUNT(AUTO) 5.06 MIL/uL (4.50-6.20); RED CELL DISTRIBUTION WIDTH 13.9 % (11.0-15.5); WHITE BLOOD COUNT (AUTO) 4.6 K/uL (4.8-10.8)
[2023-03-29 07:27] LABS: INR 1.75 (0.85-1.15); PROTHROMBIN TIME 19.6 SEC (9.6-11.6)
[2023-03-29 08:03] LABS: ALBUMIN 3.8 g/dL (3.5-5.0); BILIRUBIN,TOTAL 0.7 mg/dL (0.2-1.0); CREATININE 1.2 mg/dL (0.5-1.5); TOTAL PROTEIN, SERUM 7.1 g/dL (6.0-8.3)
[2023-03-29] MEDS ORDERED: ONDANSETRON 4MG INJ ONE (09:15)
[2023-03-29] MEDS ORDERED: MORPHINE 2 MG SYG ONE (09:15)
[2023-03-29 09:16] LABS: B-TYPE NATRIURETIC PEPTIDE 27 pg/mL (0-100)
[2023-03-29 09:23] VITALS: BP 157/76; PULSE 60; RESP 18; O2SAT 95
[2023-03-29] MEDS ORDERED: ONDANSETRON 4MG INJ IVP ONE (09:30)
[2023-03-29] MEDS ORDERED: MORPHINE 2 MG SYG IVP ONE (09:30)
[2023-03-29 09:47] LABS: APPEARANCE,URINE CLEAR (CLEAR); BILIRUBIN,URINE NEGATIVE (NEGATIVE); COLOR,URINE LIGHT-YELLOW (YELLOW); GLUCOSE, URINE (UA) NEGATIVE (NEGATIVE); KETONES,URINE NEGATIVE (NEGATIVE); LEUKOCYTE ESTERASE ,URINE NEGATIVE Leu/uL (NEGATIVE); NITRATE,URINE NEGATIVE (NEGATIVE); OCCULT BLOOD,URINE NEGATIVE (NEGATIVE); PH,URINE 5.5 (5.0-8.0); PROTEIN,URINE NEGATIVE (NEGATIVE); UROBILINOGEN,URINE 0.2 mg/dL (0.2-1.0)
[2023-03-29 09:57] LABS: ADD UA MICROSCOPIC NO
[2023-03-29] MEDS ORDERED: MECL-160 PO (11:18)
== END 2023-03-29 12:23 | disposition home or self-care (01) ==
LOC: EDH 06:12
DX: H81.10 Benign paroxysmal vertigo, unspecified ear (principal); F41.9 Anxiety disorder, unspecified; K40.90 Unilateral inguinal hernia, without obstruction or gangrene, not specified as recurrent; E78.00 Pure hypercholesterolemia, unspecified; I10 Essential (primary) hypertension; Z79.52 Long term (current) use of systemic steroids; Z79.899 Other long term (current) drug therapy; Z86.73 Personal history of transient ischemic attack (TIA), and cerebral infarction without residual deficits; Z95.1 Presence of aortocoronary bypass graft
CPT/HCPCS: 99284; 70450; 96374; 71045; 96375; 84484; 80053; 83880; 85025; 85610; 81003; 36415; 74176; 93005; J2270; J2405

== ENCOUNTER 2023-05-28 01:57 | Emergency (ER) | payer OTHER ==
[~2023-05-28] VITALS: Ht 182.9 cm; Wt 84.8 kg
[~2023-05-28 01:57] MED LIST changes: +MECL-302 PO
[2023-05-28 01:58] VITALS: BP 143/75
[2023-05-28] MEDS ORDERED: ONDANSETRON 4MG INJ ONE (02:38)
[2023-05-28] MEDS ORDERED: MORPHINE 4 MG SYG ONE (02:39)
[2023-05-28] MEDS ORDERED: ONDANSETRON 4MG INJ IVP STA (02:43)
[2023-05-28] MEDS ORDERED: MORPHINE 4 MG SYG IVP STA (02:43)
[2023-05-28 02:56] LABS: BASOPHILS # (AUTO) 0.03 K/uL (0.00-0.20); BASOPHILS % (AUTO) 0.4 % (0.0-5.0); EOSINOPHILS # (AUTO) 0.03 K/uL (0.00-0.70); EOSINOPHILS % (AUTO) 0.4 % (0.0-8.0); IMMATURE GRANULOCYTE ABSOLUTE 0.08 K/uL (0-1); LYMPHOCYTES # (AUTO) 1.2 K/uL (1.0-4.8); MEAN CORPUSCULAR HEMOGLOBIN 31.7 pg (27.0-33.0); MEAN CORPUSCULAR HGB CONC 33.9 g/dL (32.0-36.0); MEAN CORPUSCULAR VOLUME 93.5 fL (79-99); MONOCYTES # (AUTO) 0.4 K/uL (0.1-1.0); MONOCYTES % (AUTO) 5.4 % (3.0-13.0); NEUTROPHILS # (AUTO) 5.1 K/uL (1.8-7.7); NEUTROPHILS % (AUTO) 74.6 % (40.0-77.0); PLATELET COUNT (AUTO) 141 K/uL (130-400); RED BLOOD CELL COUNT(AUTO) 4.92 MIL/uL (4.50-6.20); RED CELL DISTRIBUTION WIDTH 12.9 % (11.0-15.5); WHITE BLOOD COUNT (AUTO) 6.9 K/uL (4.8-10.8)
[2023-05-28] MEDS ORDERED: FENTANYL CITRATE PF 50 MCG/1 ML 2ML VIAL IVP ONE (03:00)
[2023-05-28] MEDS ORDERED: 0.9%NACL 1000ML 1,000 ML IV ONE ×3 (03:08→03:30)
[2023-05-28 03:09] LABS: CREATININE 1.5 mg/dL (0.5-1.5); POTASSIUM 4.4 mmol/L (3.5-5.1)
[2023-05-28 03:14] LABS: ALBUMIN 3.9 g/dL (3.5-5.0); BILIRUBIN,TOTAL 0.5 mg/dL (0.2-1.0); TOTAL PROTEIN, SERUM 6.9 g/dL (6.0-8.3)
[2023-05-28 03:19] VITALS: PULSE 96; RESP 20; O2SAT 100
[2023-05-28] MEDS ORDERED: HALOPERIDOL INJ 5 MG/ML VIAL IV STA (03:35)
[2023-05-28] MEDS ORDERED: HALOPERIDOL INJ 5 MG/ML VIAL ONE (03:36)
[2023-05-28 05:09] LABS: APPEARANCE,URINE CLOUDY (CLEAR); BILIRUBIN,URINE NEGATIVE (NEGATIVE); COLOR,URINE LIGHT-ORANGE (YELLOW); GLUCOSE, URINE (UA) NEGATIVE (NEGATIVE); KETONES,URINE NEGATIVE (NEGATIVE); LEUKOCYTE ESTERASE ,URINE 25 Leu/uL (NEGATIVE); NITRATE,URINE NEGATIVE (NEGATIVE); OCCULT BLOOD,URINE LARGE (NEGATIVE); PH,URINE 5.5 (5.0-8.0); PROTEIN,URINE 30 mg/dL (NEGATIVE); UROBILINOGEN,URINE 0.2 mg/dL (0.2-1.0)
[2023-05-28] MEDS ORDERED: LORAZEPAM 2 MG/ML 1 ML VIAL ONE (05:12)
[2023-05-28 05:26] LABS: BACTERIA,URINE RARE /HPF (None Seen); MUCUS,URINE RARE LPF (None Seen); OTHER CASTS, URINE 7 /LPF (None Seen); SQUAMOUS EPITHELIAL CELL,UR RARE /HPF (0-2)
[2023-05-28] MEDS ORDERED: LORAZEPAM 2 MG/ML 1 ML VIAL IVP ONE ×2 (05:30)
[2023-05-28] MEDS ORDERED: TAMS-1 PO (06:00)
[2023-05-28] MEDS ORDERED: IBUP-1493 PO (06:00)
[2023-05-28] MEDS ORDERED: TRAM50TA4 PO (06:00)
== END 2023-05-28 07:06 | disposition home or self-care (01) ==
LOC: EDH 01:57
DX: N13.2 Hydronephrosis with renal and ureteral calculous obstruction (principal); E78.00 Pure hypercholesterolemia, unspecified; Z79.52 Long term (current) use of systemic steroids; Z79.899 Other long term (current) drug therapy; Z86.73 Personal history of transient ischemic attack (TIA), and cerebral infarction without residual deficits; Z90.49 Acquired absence of other specified parts of digestive tract
CPT/HCPCS: 99284; 74176; 96374; 96375; 96361; 84484; 80053; 83690; 85025; 87088; 81001; 36415; J3010; J7030; J1630; J2405; J2060; J2270

== ENCOUNTER 2023-10-10 12:28 | Emergency (ER) | payer OTHER ==
[~2023-10-10] VITALS: Ht 182.9 cm; Wt 81.6 kg
[~2023-10-10 12:28] MED LIST changes: -ENOX80DI8 SQ; +IBUP-1493 PO; -MECL-302 PO; -POLY17PO4 PO; -PRAV80TA21 PO; +PRAV80TA43 PO; +TAMS-1 PO; +TRAM50TA4 PO; -WARF6TAB49 PO
[2023-10-10 12:55] LABS: BASOPHILS # (AUTO) 0.03 K/uL (0.00-0.20); BASOPHILS % (AUTO) 0.6 % (0.0-5.0); EOSINOPHILS # (AUTO) 0.06 K/uL (0.00-0.70); EOSINOPHILS % (AUTO) 1.2 % (0.0-8.0); HEMATOCRIT 45.3 % (42-54); IMMATURE GRANULOCYTE ABSOLUTE 0.08 K/uL (0-1); LYMPHOCYTES # (AUTO) 1.3 K/uL (1.0-4.8); LYMPHOCYTES % (AUTO) 26.7 % (21.0-51.0); MEAN CORPUSCULAR HEMOGLOBIN 32.1 pg (27.0-33.0); MEAN CORPUSCULAR HGB CONC 34.4 g/dL (32.0-36.0); MEAN CORPUSCULAR VOLUME 93.2 fL (79-99); MONOCYTES # (AUTO) 0.3 K/uL (0.1-1.0); MONOCYTES % (AUTO) 6.2 % (3.0-13.0); NEUTROPHILS # (AUTO) 3.2 K/uL (1.8-7.7); NEUTROPHILS % (AUTO) 63.7 % (40.0-77.0); PLATELET COUNT (AUTO) 146 K/uL (130-400); RED BLOOD CELL COUNT(AUTO) 4.86 MIL/uL (4.50-6.20); RED CELL DISTRIBUTION WIDTH 13.1 % (11.0-15.5)
[2023-10-10 13:04] LABS: CREATININE 1.5 mg/dL (0.5-1.5); POTASSIUM 4.3 mmol/L (3.5-5.1)
[2023-10-10 13:08] LABS: ALBUMIN 3.8 g/dL (3.5-5.0); BILIRUBIN,TOTAL 0.7 mg/dL (0.2-1.0); MAGNESIUM 1.6 mg/dL (1.80-2.40); TOTAL PROTEIN, SERUM 7.2 g/dL (6.0-8.3)
[2023-10-10 13:37] LABS: APPEARANCE,URINE CLEAR (CLEAR); BILIRUBIN,URINE NEGATIVE (NEGATIVE); COLOR,URINE YELLOW (YELLOW); GLUCOSE, URINE (UA) NEGATIVE (NEGATIVE); KETONES,URINE NEGATIVE (NEGATIVE); LEUKOCYTE ESTERASE ,URINE NEGATIVE Leu/uL (NEGATIVE); NITRATE,URINE NEGATIVE (NEGATIVE); OCCULT BLOOD,URINE NEGATIVE (NEGATIVE); PH,URINE 5.5 (5.0-8.0); PROTEIN,URINE NEGATIVE (NEGATIVE); UROBILINOGEN,URINE 0.2 mg/dL (0.2-1.0)
[2023-10-10 13:38] LABS: ADD UA MICROSCOPIC NO
[2023-10-10 16:30] VITALS: BP 137/69; PULSE 53; RESP 14; O2SAT 96
[2023-10-10] MEDS ORDERED: LEVE1000 PO (17:52)
[2023-10-10] MEDS ORDERED: LEVE-43 PO (17:52)
[2023-10-10] MEDS ORDERED: LEVETIRACETAM 500 MG/5 ML SD VIAL IV SCH (18:00)
[2023-10-10] MEDS: LEVETIRACETAM 1,000 MG in 0.9%NACL 100ML 100 ML IV SCH (18:32)
[2023-10-10] MEDS: LEVETIRACETAM 500 MG/5 ML SD VIAL IV ONE (18:33)
== END 2023-10-10 19:10 | disposition home or self-care (01) ==
LOC: EDH 12:28
DX: G40.909 Epilepsy, unspecified, not intractable, without status epilepticus (principal); E78.00 Pure hypercholesterolemia, unspecified; Z79.1 Long term (current) use of non-steroidal anti-inflammatories (NSAID); Z79.52 Long term (current) use of systemic steroids; Z79.899 Other long term (current) drug therapy; Z86.73 Personal history of transient ischemic attack (TIA), and cerebral infarction without residual deficits; Z90.49 Acquired absence of other specified parts of digestive tract
CPT/HCPCS: 99284; 74176; 96365; 83735; 84484; 80053; 83690; 85025; 81003; 36415; 93005; J1953 ×2

== ENCOUNTER 2023-12-25 07:13 | Day surgery (SDC) | payer OTHER ==
[2023-12-22 11:17] LABS: BASOPHILS # (AUTO) 0.04 K/uL (0.00-0.20); BASOPHILS % (AUTO) 0.6 % (0.0-5.0); EOSINOPHILS # (AUTO) 0.16 K/uL (0.00-0.70); EOSINOPHILS % (AUTO) 2.6 % (0.0-8.0); HEMATOCRIT 45.9 % (42-54); IMMATURE GRANULOCYTE ABSOLUTE 0.23 K/uL (0-1); LYMPHOCYTES # (AUTO) 1.3 K/uL (1.0-4.8); LYMPHOCYTES % (AUTO) 20.7 % (21.0-51.0); MEAN CORPUSCULAR HEMOGLOBIN 32.4 pg (27.0-33.0); MEAN CORPUSCULAR HGB CONC 33.1 g/dL (32.0-36.0); MEAN CORPUSCULAR VOLUME 97.9 fL (79-99); MONOCYTES # (AUTO) 0.5 K/uL (0.1-1.0); MONOCYTES % (AUTO) 8.1 % (3.0-13.0); NEUTROPHILS % (AUTO) 64.3 % (40.0-77.0); PLATELET COUNT (AUTO) 172 K/uL (130-400); RED BLOOD CELL COUNT(AUTO) 4.69 MIL/uL (4.50-6.20); RED CELL DISTRIBUTION WIDTH 13.2 % (11.0-15.5); WHITE BLOOD COUNT (AUTO) 6.2 K/uL (4.8-10.8)
[2023-12-22 11:20] LABS: CREATININE 1.5 mg/dL (0.5-1.3); POTASSIUM 5.1 mmol/L (3.5-5.1)
[2023-12-22 11:22] LABS: INR 0.95 (0.85-1.15); PROTHROMBIN TIME 11.3 SEC (9.6-11.6)
[2023-12-22 11:23] LABS: PARTIAL THROMBOPLASTIN TIME 27.3 SEC (26.3-35.5)
[2023-12-22 11:23] LABS: APPEARANCE,URINE TURBID (CLEAR); BILIRUBIN,URINE SMALL mg/dL (NEGATIVE); COLOR,URINE RED (YELLOW); GLUCOSE, URINE (UA) NEGATIVE (NEGATIVE); KETONES,URINE 5 mg/dL (NEGATIVE); LEUKOCYTE ESTERASE ,URINE TRACE Leu/uL (NEGATIVE); NITRATE,URINE POSITIVE (NEGATIVE); OCCULT BLOOD,URINE LARGE (NEGATIVE); PH,URINE 5.5 (5.0-8.0); PROTEIN,URINE 100 mg/dL (NEGATIVE); UROBILINOGEN,URINE 0.2 mg/dL (0.2-1.0)
[2023-12-22 11:25] VITALS: BP 141/79; PULSE 66; RESP 18
[2023-12-22 11:28] LABS: ADD UA MICROSCOPIC YES
[2023-12-22 11:33] LABS: RBC,URINE TNTC /HPF (0-1)
[2023-12-22 11:34] LABS: BACTERIA,URINE Rare /HPF (None Seen); SQUAMOUS EPITHELIAL CELL,UR Rare /HPF (0-2)
[~2023-12-25] VITALS: Ht 182.9 cm; Wt 76.0 kg
[2023-12-25] VITALS (21 sets, daily range): BP systolic 127–151; BP diastolic 62–89; PULSE 61–81; RESP 11–19
[~2023-12-25 07:13] MED LIST changes: -ALBUHFA IH; +ALFU10TA9 PO; +ALLO300T2 PO; +CALC-866 PO; -CLOP-31 PO; +CLOP75TA32 PO; +CYAN-106 PO; -DEXA4 PO; -FOLI400T4 PO; -IBUP-1493 PO; +LACT10SO5 PO; +LEVE1000 PO; -LEVE10006 PO; +MAGN500C4 PO; -METH-350 PO; -PANT40TA54 PO; +PRAV80TA21 PO; -PRAV80TA43 PO; -TAMS-1 PO
[2023-12-25] MEDS ORDERED: FAMOTIDINE 20MG VIAL IV ONE (07:56)
[2023-12-25] MEDS ORDERED: MORPHINE 4 MG SYG ONE (07:57)
[2023-12-25] MEDS ORDERED: PHENYLEPHRINE HCL 10 MG/ML 1ML VIAL IV ONE (07:58)
[2023-12-25] MEDS ORDERED: LIDOCAINE PF 100MG/5ML (2%) SYRINGE 5ML ONE (07:58)
[2023-12-25] MEDS ORDERED: PROPOFOL 10 MG/ML 20ML VIAL IV ONE (07:59)
[2023-12-25] MEDS ORDERED: ROCURONIUM BROMIDE 10MG/1ML 5ML VL ONE ×2 (07:59→11:16)
[2023-12-25] MEDS ORDERED: GLYCOPYRROLATE 0.2 MG/ML 5 ML VIAL ONE (07:59)
[2023-12-25] MEDS ORDERED: FENTANYL CITRATE PF 50 MCG/1 ML 2ML VIAL ONE (08:00)
[2023-12-25] MEDS ORDERED: SUGAMMADEX SODIUM 200 MG/2 ML VIAL IV ONE (08:23)
[2023-12-25] MEDS: LACTATED RINGERS 1000ML 1,000 ML IV ONE (09:06)
[2023-12-25] MEDS: MEROPENEM 1 GM VIAL ONE (09:18)
[2023-12-25] MEDS ORDERED: MIDAZOLAM HCL 1 MG/ML 2ML VIAL ONE (10:30)
[2023-12-25] MEDS ORDERED: EPHEDRINE SULFATE 50 MG/ML AMPULE ONE (10:52)
[2023-12-25] MEDS ORDERED: ONDANSETRON 4MG INJ ONE (11:06)
[2023-12-25] MEDS: ONDANSETRON 4MG INJ ONE (12:56)
[2023-12-25] MEDS: MORPHINE 2 MG SYG ONE (13:00)
[2023-12-25] MEDS: FENTANYL CITRATE PF 50 MCG/1 ML 2ML VIAL ONE (13:25)
[2023-12-25] MEDS ORDERED: BACITRACIN 1 EACH PACKET TP ONE (14:20)
[2023-12-25] MEDS: HYDROCODONE/ACETAMINOPHEN 5/325 MG TAB ONE (14:29)
[2023-12-25] MEDS ORDERED: HYDROCODONE/ACETAMINOPHEN 5/325 MG TAB PO ONE (14:30)
== END 2023-12-25 15:05 | disposition home or self-care (01) ==
LOC: DAH 07:13
PROVIDERS: ATTEND Urology
DX: N40.0 Benign prostatic hyperplasia without lower urinary tract symptoms (principal); R33.8 Other retention of urine; R32 Unspecified urinary incontinence; I25.10 Atherosclerotic heart disease of native coronary artery without angina pectoris; I10 Essential (primary) hypertension; Z95.5 Presence of coronary angioplasty implant and graft; Z83.3 Family history of diabetes mellitus; Z86.73 Personal history of transient ischemic attack (TIA), and cerebral infarction without residual deficits; Z82.49 Family history of ischemic heart disease and other diseases of the circulatory system; Z87.891 Personal history of nicotine dependence; Z79.899 Other long term (current) drug therapy; Z98.890 Other specified postprocedural states
CPT/HCPCS: 71045; 80048; 85025; 85610; 85730; 87077; 87088; 87186; 81001; 36415; 93005; 80177; 52648; A6260; J7030; A4354; J7120; J3490 ×5; J3010 ×2; J2270 ×2; J2250; J2704; J2405 ×2; J2371; J2185; A4315; A4358 ×2; A4930; A4215; A4223; A4213; A4222; A4221; A4663; A4600; J2001

== ENCOUNTER 2024-01-22 13:21 | Emergency (ER) | payer OTHER ==
[~2024-01-22] VITALS: Ht 182.9 cm; Wt 72.1 kg
[2024-01-22 14:12] LABS: BASOPHILS # (AUTO) 0.04 K/uL (0.00-0.20); BASOPHILS % (AUTO) 0.7 % (0.0-5.0); EOSINOPHILS # (AUTO) 0.12 K/uL (0.00-0.70); HEMATOCRIT 45.7 % (42-54); IMMATURE GRANULOCYTE ABSOLUTE 0.14 K/uL (0-1); LYMPHOCYTES % (AUTO) 16.1 % (21.0-51.0); MEAN CORPUSCULAR HEMOGLOBIN 31.6 pg (27.0-33.0); MEAN CORPUSCULAR HGB CONC 33.5 g/dL (32.0-36.0); MEAN CORPUSCULAR VOLUME 94.4 fL (79-99); MONOCYTES # (AUTO) 0.4 K/uL (0.1-1.0); MONOCYTES % (AUTO) 7.2 % (3.0-13.0); NEUTROPHILS # (AUTO) 4.3 K/uL (1.8-7.7); NEUTROPHILS % (AUTO) 71.7 % (40.0-77.0); PLATELET COUNT (AUTO) 154 K/uL (130-400); RED BLOOD CELL COUNT(AUTO) 4.84 MIL/uL (4.50-6.20); RED CELL DISTRIBUTION WIDTH 13.1 % (11.0-15.5)
[2024-01-22 14:24] LABS: CREATININE 1.5 mg/dL (0.5-1.3); POTASSIUM 4.6 mmol/L (3.5-5.1)
[2024-01-22 14:33] LABS: ALBUMIN 3.7 g/dL (3.5-5.0); BILIRUBIN,TOTAL 0.6 mg/dL (0.2-1.0); TOTAL PROTEIN, SERUM 7.5 g/dL (6.0-8.3)
[2024-01-22 15:45] LABS: APPEARANCE,URINE CLEAR (CLEAR); BILIRUBIN,URINE NEGATIVE (NEGATIVE); COLOR,URINE YELLOW (YELLOW); GLUCOSE, URINE (UA) NEGATIVE (NEGATIVE); KETONES,URINE NEGATIVE (NEGATIVE); LEUKOCYTE ESTERASE ,URINE 250 Leu/uL (NEGATIVE); NITRATE,URINE NEGATIVE (NEGATIVE); OCCULT BLOOD,URINE MODERATE (NEGATIVE); PROTEIN,URINE 20 mg/dL (NEGATIVE); UROBILINOGEN,URINE 0.2 mg/dL (0.2-1.0)
[2024-01-22 15:48] LABS: BACTERIA,URINE RARE /HPF (None Seen); MUCUS,URINE RARE LPF (None Seen); RBC,URINE 26-50 /HPF (0-1); WBC,URINE 26-50 /HPF (0-1)
[2024-01-22] MEDS ORDERED: CEPH500B PO (18:07)
[2024-01-22 18:30] VITALS: BP 113/75; PULSE 75; RESP 18; O2SAT 99
== END 2024-01-22 19:09 | disposition home or self-care (01) ==
LOC: EDH 13:21
DX: N39.0 Urinary tract infection, site not specified (principal); R53.1 Weakness; E78.00 Pure hypercholesterolemia, unspecified; I10 Essential (primary) hypertension; Z79.899 Other long term (current) drug therapy; Z90.49 Acquired absence of other specified parts of digestive tract; Z95.1 Presence of aortocoronary bypass graft; Z98.890 Other specified postprocedural states
CPT/HCPCS: 36415; 80053; 81001; 83735; 84484; 85025; 87086; 93005

== ENCOUNTER → 2024-02-19 | Outpatient (CLI) | payer OTHER ==
[~2024-02-19] MED LIST changes: +ALFU10TA46 PO; -ALFU10TA9 PO; +CEPH500B PO
== END | disposition home or self-care (01) ==
LOC: RAH 13:12
PROVIDERS: ATTEND Family Medicine
DX: N28.1 Cyst of kidney, acquired (principal); I71.43 Infrarenal abdominal aortic aneurysm, without rupture; K44.9 Diaphragmatic hernia without obstruction or gangrene; J84.10 Pulmonary fibrosis, unspecified; J47.9 Bronchiectasis, uncomplicated; I25.10 Atherosclerotic heart disease of native coronary artery without angina pectoris; R10.9 Unspecified abdominal pain; K62.89 Other specified diseases of anus and rectum; M47.815 Spondylosis without myelopathy or radiculopathy, thoracolumbar region; Z90.49 Acquired absence of other specified parts of digestive tract
CPT/HCPCS: 74176

== ENCOUNTER 2025-03-14 16:23 | Observation (INO) | payer OTHER ==
[~2025-03-14] VITALS: Ht 188 cm; Wt 73.3 kg
[~2025-03-14 16:23] MED LIST changes: +LACT-441 PO; -LACT10SO5 PO; -PRAV80TA21 PO; +PRAV80TA75 PO
--- NOTE | 2025-03-14 16:41 | EKG ---
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
[2025-03-14 16:46] LABS: IMMATURE GRANULOCYTE ABSOLUTE 0.09 K/uL (0-1); NUCLEATED RED BLOOD CELLS 0.0 % (0.0-0.19); PLATELET COUNT (AUTO) 142 K/uL (130-400); RED BLOOD CELL COUNT(AUTO) 4.87 MIL/uL (4.50-6.20); RED CELL DISTRIBUTION WIDTH 12.7 % (11.0-15.5); WHITE BLOOD COUNT (AUTO) 6.5 K/uL (4.8-10.8)
--- NOTE | 2025-03-14 16:51 | ERN ---
General Chief Complaint: Weakness Stated Complaint: HEADACHE, ABD PAIN, WEAKNESS Time Seen by MD: 16:27 Source: patient History of Present Illness Initial Comments PATIENT IS A AN 85-YEAR-OLD MALE COMING IN FOR GENERALIZED BODY WEAKNESS, LONG WITH THE THE WEAKNESS HE HAS BEEN ABDOMINAL DISCOMFORT FOR SOME TIME. Allergies: Coded Allergies: No Known Drug Allergies (Verified Allergy, 07/22/12) Home Meds Active Scripts Cephalexin Monohydrate (Keflex) 500 Mg Cap, 500 MG PO BID for 7 Days, #28 CAP Prov:COLVINIMTIAZ BINDER TECHNICIAN 01/22/24 Reported Medications Magnesium Oxide (Magnesium) 500 Mg Capsule, 500 MG PO DAILY, CAP 12/22/23 Cholecalciferol (Vitamin D3) (Vitamin D3) 125 Mcg (5000 Unit) Tablet, 125 MCG PO DAILY, TAB 12/22/23 Cyanocobalamin (Vitamin B-12) (Vitamin B12) 1,000 Mcg Tablet, 1000 MCG PO DAILY, TAB 12/22/23 Lactulose (Lactulose) 10 Gram/15 Ml Solution, 10 GM PO AD PRN for CONSTIPATION, ML 12/22/23 Tramadol Hcl (Tramadol HCl) 50 Mg Tablet, 50 MG PO AD PRN for PAIN, TAB 12/22/23 Alfuzosin HCl (Alfuzosin HCl) 10 Mg Tab.er.24h, 10 MG PO HS, TAB 12/22/23 Pravastatin Sodium (Pravastatin Sodium) 80 Mg Tablet, 80 MG PO HS, TAB 12/22/23 Allopurinol (Allopurinol) 300 Mg Tablet, 300 MG PO HS, TAB 12/22/23 Clopidogrel Bisulfate (Clopidogrel) 75 Mg Tablet, 75 MG PO QODAY, TAB 12/22/23 Gemfibrozil (Gemfibrozil) 600 Mg Tablet, 600 MG PO BID, TAB 12/22/23 Metoprolol Succinate (Metoprolol Succinate) 25 Mg Tab.er.24h, 25 MG PO DAILY, TAB 12/22/23 Levetiracetam (Keppra) 1,000 Mg Tablet, 1000 MG PO BID, TAB 12/22/23 Past Medical History Past Medical History: DVT, High Cholesterol, Hypertension, Kidney Stone, Seizure, Stroke Medical History Other: CHRONIC ABD PAIN, LT SIDE WEAKNESS Past Surgical History: Cholecystectomy, CABG, Other Surgical History Other: AAA REPAIR, CAROTID STENT, FEMORAL STENT, HERNIA REPAIR, Family History Family History: HTN Social History Social History: Negative, Lives with family ROS Dictation CONSTITUTIONAL: NO CHILLS, NO FEVER, WEAKNESS, NO DIAPHORESIS, MALAISE. HEAD/FACE: NO SIGNS OF TRAUMA. EENT: NO EYE PAIN, NO BLURRED VISION, NO TEARING, NO DOUBLE VISION, NO EAR PAIN, NO EAR DISCHARGE, NO NOSE PAIN, NO NASAL CONGESTION, NO THROAT PAIN, NO THROAT SWELLING, NO MOUTH PAIN. RESPIRATORY: NO COUGH, NO ORTHOPNEA, NO SOB, NO STRIDOR, NO WHEEZING. CARDIOVASCULAR: NO CHEST PAIN, NO EDEMA, NO PALPITATIONS, NO SYNCOPE. GASTROINTESTINAL/ABDOMINAL: NO ABDOMINAL PAIN, NO CONSTIPATION, NO DIARRHEA, NO NAUSEA, NO VOMITING. GENITOURINARY: NO ABNORMAL DISCHARGE, NO DYSURIA, NO FREQUENT URINATION, NO HEMATURIA. NO COMPLAINTS OF PAIN IN THE GENITALS. MUSCULOSKELETAL: NO BACK PAIN, NO GOUT, NO JOINT PAIN, NO JOINT SWELLING, NO MUSCLE PAIN, NO MUSCLE STIFFNESS, NO NECK PAIN. INTEGUMENTARY: NO CHANGE IN COLOR, NO CHANGE IN HAIR/NAILS, NO DRYNESS, NO LESION, NO LUMPS, NO RASH. NEUROLOGICAL/PSYCH: NO ANXIETY, NOT DEPRESSED, NO EMOTIONAL PROBLEM, NO HEADACHE, NO NUMBNESS, NO PRE-EXISTING DEFICIT, NO HISTORY OF SEIZURES, NO TREMORS, NO WEAKNESS. HEMATOLOGIC/LYMPHATIC: NOT ANEMIC, NO HISTORY OF BLOOD CLOTS, NO APPARENT BLEEDING, NO BRUISING, GLANDS NOT SWOLLEN. ALL SYSTEMS NEGATIVE, EXCEPT NOTED. Physical Exam Physical Exam Dictation VITAL SIGNS: REVIEWED. GENERAL APPEARANCE: ALERT, ORIENTED X3, NO ACUTE DISTRESS, OBESE. HEAD AND FACE: NON-TRAUMATIC. EYES: PERRL, PINK CONJUNCTIVAS, EYELID NO TRAUMA, ANTERIOR CHAMBER CLEAR. EARS: PINNAS INTACT AND NO SIGNS OF TRAUMA OR ERYTHEMA. EAR CANALS CLEAR AND NO DISCHARGE. TMS NO ERYTHEMA. NOSE: NO DISCHARGE, NO BLEEDING. OROPHARYNX: MOUTH NORMAL, TEETH NO CARIES, TONGUE PINK. PHARYNX CLEAR, NO ERYTHEMA. TONSILS NO EXUDATES, NO ABSCESSES NOTED. MUCOUS MEMBRANE MOIST. NECK: SUPPLE, NON-TENDER, NO THYROMEGALY, NO MASSES, NO JVD, NO BRUITS. BREAST: DEFERRED. CHEST: NO TENDERNESS, NO CREPITUS, NO PARADOXICAL MOVEMENT, NO RETRACTIONS. LUNGS: CLEAR, WELL-VENTILATED, SYMMETRIC, NO RALES, NO WHEEZING, NO RHONCHI, NO STRIDOR, GOOD BREATH SOUNDS BILATERALLY. HEART: REGULAR RATE, REGULAR RHYTHM, NO MURMUR, NO GALLOPS. VASCULAR: NO PERIPHERAL EDEMA. ABDOMEN: SOFT, POSITIVE BOWEL SOUNDS, NONDISTENDED, NO GUARDING, NONTENDER, NO REBOUND, NO MASSES NO HEPATOMEGALY, NO SPLENOMEGALY, NO DUFFY'S SIGN, NO HERNIAS. RECTAL: DEFERRED. GENITAL: DEFERRED. NEUROLOGICAL: NORMAL SPEECH, GROSS MOTOR FUNCTION INTACT, GROSS SENSORY FUNCTION INTACT. MUSCULOSKELETAL: NECK NONTENDER, FULL RANGE OF MOTION, BACK NONTENDER, FULL RANGE OF MOTION. EXTREMITIES: NONTENDER, FULL RANGE OF MOTION. SKIN: COLOR PINK, DRY, NO TURGOR, NO RASH, NO LACERATIONS, NO ABRASIONS, NO CONTUSIONS. LYMPHATICS: DEFERRED. Results Laboratory and Microbiology Lab and Micro Result Laboratory Tests Test 03/14/25 16:39 White Blood Count 6.5 K/uL (4.8-10.8) Red Blood Count 4.87 MIL/uL (4.50-6.20) Hemoglobin 16.1 g/dL (14.0-18.0) Hematocrit 46.5 % (42-54) Mean Corpuscular Volume 95.5 fL (79-99) Mean Corpuscular Hemoglobin 33.1 pg (27.0-33.0) H Mean Corpuscular Hemoglobin Concent 34.6 g/dL (32.0-36.0) Red Cell Distribution Width 12.7 % (11.0-15.5) Platelet Count 142 K/uL (130-400) Mean Platelet Volume 9.4 fL (7.5-10.5) Immature Granulocyte % (Auto) 1.4 % (0-1) H Neutrophils (%) (Auto) 70.2 % (40.0-77.0) Lymphocytes (%) (Auto) 20.4 % (21.0-51.0) L Monocytes (%) (Auto) 6.9 % (3.0-13.0) Eosinophils (%) (Auto) 0.6 % (0.0-8.0) Basophils (%) (Auto) 0.5 % (0.0-5.0) Neutrophils # (Auto) 4.6 K/uL (1.8-7.7) Lymphocytes # (Auto) 1.3 K/uL (1.0-4.8) Monocytes # (Auto) 0.5 K/uL (0.1-1.0) Eosinophils # (Auto) 0.04 K/uL (0.00-0.70) Basophils # (Auto) 0.03 K/uL (0.00-0.20) Absolute Immature Granulocyte (auto 0.09 K/uL (0-1) Nucleated Red Blood Cells 0.0 % (0.0-0.19) Sodium Level 139 mmol/L (136-145) Potassium Level 4.6 mmol/L (3.5-5.1) Chloride Level 104 mmol/L (101-111) Carbon Dioxide Level 23 mmol/L (21-32) Blood Urea Nitrogen 26 mg/dL (7-18) H Creatinine 1.3 mg/dL (0.5-1.3) Glomerular Filtration Rate Calc 55 mL/min (>90) Random Glucose 183 mg/dL (70-105) H Total Calcium 9.5 mg/dL (8.5-10.1) Total Bilirubin 0.7 mg/dL (0.2-1.0) Aspartate Amino Transf (AST/SGOT) 19 U/L (10-37) Alanine Aminotransferase (ALT/SGPT) 17 U/L (12-78) Alkaline Phosphatase 124 U/L (50-136) Total Creatine Kinase 41 U/L (21-232) # Total Protein 7.0 g/dL (6.0-8.3) Albumin 4.0 g/dL (3.5-5.0) Lipase 65 U/L (16-77) Labs Reviewed?: Yes EKG/XRAY/US/CT/MRI EKG Comment 06/2025 TIME 4:37 P.M. VENTRICULAR RATE 68 SINUS RHY[address] MS [address] WAVE ELEVATION OR DEPRESSION MDM MDM: DIFFERENTIAL DIAGNOSIS: RATIONALE: TESTS CONSIDERED AND ORDERED SECONDARY TO SHARED DECISION MAKING INCLUDE: PREVIOUS OUTSIDE RECORDS REVIEWED: OLD ER VISITS. RISK OF COMPLICATION AND/OR MORBIDITY OR MORTALITY OF PATIENT MANAGEMENT: NONE MEDICATIONS-PER MEDICATION RECONCILIATION NEED FOR HOSPITALIZATION: PATIENT DOES NOT MEET CRITERIA FOR HOSPITALIZATION. NEED FOR EMERGENCY MAJOR/MINOR SURGERY: NO THERE ARE NO SOCIAL CONCERNS WITH THIS PATIENT. PRESCRIPTION DRUG MANAGEMENT PRESCRIPTIONS WILL INCLUDE SYMPTOMATIC CARE PATIENT'S PRIOR EXTERNAL MEDICAL RECORDS FROM OTHER ER VISITS WERE REVIEWED BY ME INDICATED. PRIOR TESTING AND RESULTS FROM PREVIOUS VISITS WERE REVIEWED. PRIOR TESTS WERE TAKEN INTO ACCOUNT WITH MEDICAL DECISION MAKING AND RESOURCE UTILIZATION, INDEPENDENT HISTORIAN/HISTORIANS WERE USED TO OBTAIN COMPLETE MEDICAL HISTORY. I INDEPENDENTLY INTERPRETED THE TEST THAT WERE PERFORMED, RESULTS WERE REVIEWED BY ME AND CONSIDERED FINDINGS ON RADIOLOGY IF ORDERED. MEDICAL MANAGEMENT AND EXAMINATION INTERPRETATION DISCUSSIONS WERE HAD BY ME WITH OTHER QUALIFIED HEALTHCARE PROFESSIONALS INDICATED FOR THE PATIENT'S CARE. Patient could simply be dehydrated. We did bolused him a L of saline orthostatic measurements were not positive with the patient needed full assist to stand. Urine is still pending. Given the patient's age and unsteadiness on his feet I have called the hospitalist service to admit him and they have agreed. ED Course Orders Procedure Category Date Status Time Cbc With Differential LAB 03/14/25 Complete 16:31 Comprehensive LAB 03/14/25 Complete Metabolic Panel 16: Urinalysis Profile LAB 03/14/25 Logged 16:31 12 Lead Ekg Tracing- EKG 03/14/25 Resulted Technical 16:31 0.9%Nacl 1000ml (Ns PHA 03/14/25 Complete 1000ml) 17:00 Ondansetron 4mg Inj PHA 03/14/25 Complete (Zofran 4mg Inj) 17:00 Pantoprazole 40mg Inj PHA 03/14/25 Complete (Protonix 40mg Inj 17:00 Creatine Kinase, Total LAB 03/14/25 Complete 16:31 Lipase LAB 03/14/25 Complete 16:31 Current Medications Medications (Trade) Dose Ordered Sig/Catrachito Route PRN Reason Start Time Stop Time Status Last Admin Dose Admin Ondansetron HCl (zoFRAN 4MG INJ) 4 mg ONCE IVP 03/14/25 17:00 03/14/25 21:00 DC 03/14/25 20:01 Pantoprazole Sodium (PROTonix 40MG INJ) 40 mg ONCE IVP 03/14/25 17:00 03/14/25 21:00 DC 03/14/25 20:01 Sodium Chloride 1,000 ml @ 0 mls/hr ONCE IV 03/14/25 17:00 03/14/25 21:00 DC 03/14/25 20:01 Vital Signs Date Time Temp Pulse Resp B/P (MAP) Pulse Ox O2 Delivery O2 Flow Rate FiO2 03/14/25 21:15 98.4 74 16 124/70 94 Room Air* 0 21 03/14/25 21:14 98.4 62 16 141/70 94 Room Air* 0 03/14/25 21:12 98.4 60 16 130/68 94 Room Air* 0 03/14/25 20:13 98.4 72 16 130/74 94 Room Air* 0 03/14/25 16:24 98.4 72 16 130/74 94 Room Air 0 DX & DISP Disposition: Inpatient Departure Impression: Primary Impression: General weakness Additional Impressions: Lower abdominal pain, Continuous severe abdominal pain, Dehydration Condition: Stable Referrals: FIDELIA CORNEJO MD (PCP) HUNTER PAYNE MD Mar 14, 2025 16:51 JOSUÉ RODRIGUEZ MD Mar 14, 2025 21:41
[2025-03-14 16:52] LABS: CREATININE 1.3 mg/dL (0.5-1.3); GLOMERULAR FILTR. RATE CALC 55.0 mL/min (>90); GLUCOSE,RANDOM 183.0 mg/dL (70-105); SODIUM SERUM 139.0 mmol/L (136-145); UREA NITROGEN, BLOOD 26.0 mg/dL (7-18)
[2025-03-14 17:04] LABS: ASPARTATE AMINOTRANSFERASE 19.0 U/L (10-37); CREATINE KINASE, TOTAL 41.0 U/L (21-232); TOTAL PROTEIN, SERUM 7.0 g/dL (6.0-8.3)
[2025-03-14] MEDS: 0.9%NACL 1000ML 1,000 ML IV SCH (20:01)
[2025-03-14] MEDS ORDERED: HYDROcodone/APAP 5/325 1 TAB TABLET PO PRN (22:30)
[2025-03-15] MEDS ORDERED: LACTATED RINGERS 1000ML 1,000 ML IV PRN (00:30)
[2025-03-15 00:58] LABS: APPEARANCE,URINE CLEAR (CLEAR); GLUCOSE, URINE (UA) NEGATIVE (NEGATIVE); LEUKOCYTE ESTERASE ,URINE NEGATIVE Leu/uL (NEGATIVE); NITRATE,URINE NEGATIVE (NEGATIVE); OCCULT BLOOD,URINE NEGATIVE (NEGATIVE)
[2025-03-15 01:16] LABS: ADD UA MICROSCOPIC NO
[2025-03-15 04:22] LABS: IMMATURE GRANULOCYTE ABSOLUTE 0.06 K/uL (0-1); NUCLEATED RED BLOOD CELLS 0.0 % (0.0-0.19); PLATELET COUNT (AUTO) 121 K/uL (130-400); RED BLOOD CELL COUNT(AUTO) 4.29 MIL/uL (4.50-6.20); RED CELL DISTRIBUTION WIDTH 12.8 % (11.0-15.5); WHITE BLOOD COUNT (AUTO) 4.6 K/uL (4.8-10.8)
[2025-03-15 04:43] LABS: CREATININE 1.1 mg/dL (0.5-1.3); GLOMERULAR FILTR. RATE CALC 67.0 mL/min (>90); GLUCOSE,RANDOM 87.0 mg/dL (70-105); PHOSPHORUS 3.2 mg/dL (2.5-4.9); SODIUM SERUM 141.0 mmol/L (136-145); UREA NITROGEN, BLOOD 21.0 mg/dL (7-18)
[2025-03-15 09:32] LABS: AMPHET/METH SCREEN,URINE NEGATIVE (NEGATIVE); BARBITURATE SCREEN, URINE NEGATIVE (NEGATIVE); CANNABINOID SCREEN,URINE NEGATIVE (NEGATIVE); COCAINE SCREEN,URINE NEGATIVE (NEGATIVE)
[2025-03-15] MEDS ORDERED: MIRT-22 PO (10:04)
[2025-03-15] MEDS ORDERED: FINA5TAB41 PO (10:04)
[2025-03-15 12:00] VITALS: BP 132/68; PULSE 79; RESP 16; TEMP 98.9
--- NOTE | 2025-03-15 13:55 | NUR ---
DCP: HOME Sw met with jossy and his Carlos Cronin [phone]. Couple lives in mobile home, deny issues affording home or food at this time. Pt reports he uses his cane as needed, has no other DME, denies need for provider or services. PCP is Madeleine Camp and uses [facility] for rx needs. Couple denies dc needs and will transport p home at mi. Addendum: 03/15/25 at 1358 by NATHANIEL ARANGO SS Amended: Links added.
--- NOTE | 2025-03-15 15:08 | HP ---
[facility] HISTORY & PHYSICAL Date Patient Seen: Mar 15, 2025 Time of Visit: 15:07 Supervising Physician: [ ] Primary Care Physician: [ ] Outpatient Specialists: [ ] Inpatient Consults: [ ] PROBLEM LIST: Unspecified abdominal pain General body weakness Anorexia Dehydration Constipation Frequent falls at home Electrolyte derangements DJD with cervical spine spondylosis. Non-specific troponin elevated, denies chest pain CAD with CABG Seizure disorder PAD with left aortobilateral iliac stent graft Chronic use of Coumadin due to hypercoagulable state Octogenarian DNR status HPI: Patient is an 85-year-old male with a past medical history significant For CAD status post CABG, seizure disorder, and PID, who came to the emergency room after several episodes of severe abdominal pain worsening over the last few days. Patient states that he has actually had this pain since his hernia repair X two. This was approximately a year and a half ago. Patient now with a palpable hernia just right of the midline in the suprapubic region. Hernia is reducible, patient denies discomfort unless he moves and engages his core. We will order CT of the abdomen at this time to further evaluate the patient's etiology of pain. TSH and T4 labs in the morning. Patient also described anorexia, states that he just does not have an appetite. States that he was started on a medication once daily lysed PCP but can not recall the name only that it starts with an M, possibly Megace. at bedside was advised of the current treatment plan and she expressed understanding. Patient will also receive physical therapy on this admission. Plan CT of the abdomen Morning labs including TSH and free T4 Patient with constipation we will supplement Dulcolax with the patient's lactulose Continue IV fluid hydration May start appetite stimulant in the next 24 hours. PAST MEDICAL HX: see above PAST SURGICAL HX: noncontributory SOCIAL HISTORY: No tobacco, ETOH, or illicit drug use Coded Allergies: No Known Drug Allergies (Verified Allergy, 07/22/12) REVIEW OF SYSTEMS: 12 point ROS reviewed with patient. Pertinent positives mentioned above. Otherwise negative. PHYSICAL EXAM: GENERAL: alert, weak, awake oriented x 3 HEENT: EOMI, Sclera non icteric, moist mucosa NECK: Supple, no JVD, trachea midline LUNGS: Clear breath sounds bilaterally. No wheezes HEART: Regular rate and rhythm. Normal S1 and S2, without murmurs ABD: Abdomen soft, nontender. Bowel sounds present EXT: No clubbing cyanosis or edema NEURO: Alert and oriented to person, follows commands LABS: Hematology Labs: Test 03/15/25 04:10 Range/Units White Blood Count 4.6 #L 4.8-10.8 K/uL Red Blood Count 4.29 L 4.50-6.20 MIL/uL Hemoglobin 14.4 14.0-18.0 g/dL Hematocrit 42.3 42-54 % Mean Corpuscular Volume 98.6 79-99 fL Mean Corpuscular Hemoglobin 33.6 H 27.0-33.0 pg Mean Corpuscular Hemoglobin Concent 34.0 32.0-36.0 g/dL Red Cell Distribution Width 12.8 11.0-15.5 % Platelet Count 121 L 130-400 K/uL Mean Platelet Volume 9.3 7.5-10.5 fL Immature Granulocyte % (Auto) 1.3 H 0-1 % Neutrophils (%) (Auto) 68.2 40.0-77.0 % Lymphocytes (%) (Auto) 21.7 21.0-51.0 % Monocytes (%) (Auto) 7.7 3.0-13.0 % Eosinophils (%) (Auto) 0.4 0.0-8.0 % Basophils (%) (Auto) 0.7 0.0-5.0 % Neutrophils # (Auto) 3.1 1.8-7.7 K/uL Lymphocytes # (Auto) 1.0 1.0-4.8 K/uL Monocytes # (Auto) 0.4 0.1-1.0 K/uL Eosinophils # (Auto) 0.02 0.00-0.70 K/uL Basophils # (Auto) 0.03 0.00-0.20 K/uL Absolute Immature Granulocyte (auto 0.06 0-1 K/uL Nucleated Red Blood Cells 0.0 0.0-0.19 % Chemistry Labs: Test 03/15/25 04:10 03/14/25 16:39 Range/Units Sodium Level 141 136-145 mmol/L Potassium Level 4.8 3.5-5.1 mmol/L Chloride Level 107 101-111 mmol/L Carbon Dioxide Level 24 21-32 mmol/L Blood Urea Nitrogen 21 H 7-18 mg/dL Creatinine 1.1 0.5-1.3 mg/dL Glomerular Filtration Rate Calc 67 >90 mL/min Random Glucose 87 # 70-105 mg/dL Total Calcium 8.4 L 8.5-10.1 mg/dL Phosphorus Level 3.2 2.5-4.9 mg/dL Magnesium Level 1.60 L 1.80-2.40 mg/dL Procalcitonin < 0.05 L 0.05-0.5 ng/mL Total Bilirubin 0.7 0.2-1.0 mg/dL Aspartate Amino Transf (AST/SGOT) 19 10-37 U/L Alanine Aminotransferase (ALT/SGPT) 17 12-78 U/L Alkaline Phosphatase 124 50-136 U/L Total Creatine Kinase 41 # 21-232 U/L Total Protein 7.0 6.0-8.3 g/dL Albumin 4.0 3.5-5.0 g/dL Lipase 65 16-77 U/L DIAGNOSTICS / RADIOLOGY RESULTS: [ ] PLAN NEURO: Minimize central acting medications as possible. Maintain fall precautions, adequate lighting during the day PULMONARY: Supplemental 02 as needed. Maintain aspiration precautions at all times CARDIOVASCULAR: Follow hemodynamics. Vital signs per facility protocol GI & NUTRITION: Continue with nutritional support. Continue stool softeners and laxatives as needed. KIDNEYS & ELECTROLYTES: Strict monitoring of intake, output and overall fluid balance. Avoid nephrotoxic medications to the extent possible. Medications to be dosed according to renal function. Monitor electrolytes and replace as needed ENDOCRINE: Maintain blood glucose between 100-180 at all times. Hypoglycemia protocol in place INFECTIOUS DISEASE: Trend temperature, WBC and procalcitonin level Follow cultures, deescalate antibiotics as soon as possible. Panculture if new onset fever ONCOLOGY/HEMATOLOGY/COAGULATION: Monitor for s/s of bleeding Monitor hemoglobin, coagulation studies as needed SKIN: Pressure ulcer prevention per facility protocol Specialty mattress ORTHO/REHAB: Continue PT/OT Prophylaxis: Continue GI and DVT prophylaxis Code Status: Full Resuscitation Disposition: TBD Other: Total patient care time exceeds 35 minutes excluding all procedures. MITESH OAKLEY Mar 15, 2025 15:08
[2025-03-15 16:00] VITALS: BP 108/78; PULSE 81; RESP 18; TEMP 98.4
--- NOTE | 2025-03-15 18:07 | HMCIMG ---
CLINICAL INFORMATION Abdominal pain, hernia COMPARISON None. TECHNIQUE Volumetric helical CT images of the abdomen and pelvis without contrast FINDINGS Liver: Normal. Gallbladder: Surgically absent. Biliary System: Non-dilated. Pancreas: Normal. Spleen: Normal. Adrenals: Normal. Kidneys: Mild atrophy. Multiple simple cysts measuring up to 4.3 cm on the left. Ureters: Normal. Bladder: Normal. Pelvis: No pelvic masses. No abnormal pelvic fluid. Stomach: Normal. Duodenum: Normal. Small Bowel: Normal. Colon: Few colonic diverticula without inflammation. Appendix: Normal. Lymph Nodes: No lymphadenopathy. Peritoneum: No ascites or free air. Retroperitoneum: Normal. Vessels: Infrarenal abdominal aortic aneurysm measuring up to 4.9 cm with aortobiiliac stent in place. Diffuse atherosclerotic calcifications. 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 Bypass stent is present within the left chest wall, extending inferiorly out of the field of view. Abdominal Wall: Small fat containing inguinal hernias bilaterally. Bones: Multilevel degenerative changes of the visualized spine. No acute bony findings. Lung Bases: Centrilobular emphysema with peripheral reticulation. Inferior Mediastinum: Coronary artery, mitral annular and aortic valve calcifications. IMPRESSION No acute intra-abdominal findings. Small fat-containing ventral hernias bilaterally. Infrarenal abdominal aortic aneurysm measuring up to 4.9 cm with aortobiiliac stent in place. 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 Centrilobular emphysema with peripheral reticulation. /[place]
[2025-03-15 22:40] VITALS: BP 139/74; PULSE 66; RESP 20; TEMP 97.8
--- NOTE | 2025-03-15 22:40 | NUR ---
ADMISSION NOTE PATIENT ARRIVED VIA STRETCHER, ALERT AND ORIENTED X4. PATIENT AMBULATED WITH ASSIST X 1 HAND HELD TO BATHROOM THEN BACK TO BED. STATES MILD DISCOMFORT TO LOWER ABDOMEN, NOTED LOWER ABDOMINAL HERNIA, NO PAIN UPON PALPATION, NO REDNESS. SKIN INTACT BUT DRY. PATIENT ORIENTED TO ROOM, BATHROOM, DIET, PLAN OF CARE, FALL PREVENTION MEASURES AND CALL BUTTON. CALL BUTTON PLACED WITHIN REACH.
[2025-03-16 02:55] VITALS: BP 127/73; PULSE 64; RESP 18; TEMP 97.8
[2025-03-16 05:07] LABS: NUCLEATED RED BLOOD CELLS 0.0 % (0.0-0.19); PLATELET COUNT (AUTO) 121.0 K/uL (130-400); RED BLOOD CELL COUNT(AUTO) 4.7 MIL/uL (4.50-6.20); RED CELL DISTRIBUTION WIDTH 12.8 % (11.0-15.5); WHITE BLOOD COUNT (AUTO) 5.1 K/uL (4.8-10.8)
[2025-03-16 05:29] LABS: CREATININE 1.2 mg/dL (0.5-1.3); GLOMERULAR FILTR. RATE CALC 60.0 mL/min (>90); GLUCOSE,RANDOM 96.0 mg/dL (70-105); SODIUM SERUM 142.0 mmol/L (136-145); UREA NITROGEN, BLOOD 20.0 mg/dL (7-18)
[2025-03-16 08:00] VITALS: BP 118/73; PULSE 77; RESP 18; TEMP 98.9
[2025-03-16 09:20] VITALS: O2SAT 99
[2025-03-16] MEDS ORDERED: LACTULOSE 20 GM/30 ML UDCUP PO PRN (09:30)
[2025-03-16] MEDS ORDERED: HYDROcodone/APAP 5/325 1 TAB TABLET PO PRN (10:00)
[2025-03-16] MEDS: CYANOCOBALAMIN (VITAMIN B-12) 1,000 MCG TABLET PO ONE (10:23)
[2025-03-16] MEDS: MAGNESIUM OXIDE 400 MG TABLET PO ONE (10:23)
--- NOTE | 2025-03-16 10:35 | NUR ---
MAG MEDICATION PER PATIENT AND , PATIENT TAKES MAG AT HS NOT IN AM. CHANGES MADE TO EMAR. WILL CONTINUE TO MONITOR.
[2025-03-16] MEDS: MEGESTROL 400 MG/10 ML UDCUP PO ONE (10:38)
[2025-03-16 12:04] VITALS: BP 133/74; PULSE 67; RESP 17; TEMP 97.5
--- NOTE | 2025-03-16 12:47 | PN ---
[facility] PROGRESS NOTE Date Patient Seen: Mar 16, 2025 Time of Visit: 12:47 Supervising Physician: Dr. Hebert Primary Care Physician: [ ] Outpatient Specialists: [ ] Inpatient Consults: [ ] PROBLEM LIST: Unspecified abdominal pain General body weakness Anorexia Dehydration Constipation Frequent falls at home Electrolyte derangements DJD with cervical spine spondylosis. Non-specific troponin elevated, denies chest pain CAD with CABG Seizure disorder PAD with left aortobilateral iliac stent graft Chronic use of Coumadin due to hypercoagulable state Octogenarian DNR status INTERVAL HISTORY: Patient evaluated at bedside today, resting comfortably at this time, no episodes of abdominal pain today. is at bedside. Patient was able to tolerate diet this morning, CT scan of the abdomen shows small fatty ventral hernias, no sign of strangulation. TSH and free T4 normal. He remains on room air with a white count of 5.1. We will start the patient on 40 mg Megace t.i.d. today, pending general surgery consultation to evaluate the need for surgery on the patient's ventral hernias as this may be the etiology of his abdominal pain given their location. Patient advised to continue trying to consume his meals, no overnight events for further complications reported. REVIEW OF SYSTEMS: 12 point ROS reviewed with patient. Pertinent positives mentioned above. Otherwise negative. PHYSICAL EXAM: GENERAL: alert, weak, awake oriented x 3 HEENT: EOMI, Sclera non icteric, moist mucosa NECK: Supple, no JVD, trachea midline LUNGS: Clear breath sounds bilaterally. No wheezes HEART: Regular rate and rhythm. Normal S1 and S2, without murmurs ABD: Abdomen soft, nontender. Bowel sounds present EXT: No clubbing cyanosis or edema NEURO: Alert and oriented to person, follows commands Vital Signs (last 8hr) Date Time Temp Pulse Resp B/P (MAP) Pulse Ox O2 Delivery O2 Flow Rate FiO2 03/16/25 12:04 97.5 67 17 133/74 94 Room Air 03/16/25 08:00 99.0 77 18 118/73 99 Room Air LABS: Hematology Labs: Test 03/16/25 04:37 03/15/25 04:10 Range/Units White Blood Count 5.1 4.8-10.8 K/uL Red Blood Count 4.70 4.50-6.20 MIL/uL Hemoglobin 15.4 14.0-18.0 g/dL Hematocrit 46.0 42-54 % Mean Corpuscular Volume 97.9 79-99 fL Mean Corpuscular Hemoglobin 32.8 27.0-33.0 pg Mean Corpuscular Hemoglobin Concent 33.5 32.0-36.0 g/dL Red Cell Distribution Width 12.8 11.0-15.5 % Platelet Count 121 L 130-400 K/uL Mean Platelet Volume 9.2 7.5-10.5 fL Nucleated Red Blood Cells 0.0 0.0-0.19 % Immature Granulocyte % (Auto) 1.3 H 0-1 % Neutrophils (%) (Auto) 68.2 40.0-77.0 % Lymphocytes (%) (Auto) 21.7 21.0-51.0 % Monocytes (%) (Auto) 7.7 3.0-13.0 % Eosinophils (%) (Auto) 0.4 0.0-8.0 % Basophils (%) (Auto) 0.7 0.0-5.0 % Neutrophils # (Auto) 3.1 1.8-7.7 K/uL Lymphocytes # (Auto) 1.0 1.0-4.8 K/uL Monocytes # (Auto) 0.4 0.1-1.0 K/uL Eosinophils # (Auto) 0.02 0.00-0.70 K/uL Basophils # (Auto) 0.03 0.00-0.20 K/uL Absolute Immature Granulocyte (auto 0.06 0-1 K/uL Chemistry Labs: Test 03/16/25 04:37 03/15/25 04:10 03/14/25 16:39 Range/Units Sodium Level 142 136-145 mmol/L Potassium Level 4.2 3.5-5.1 mmol/L Chloride Level 105 101-111 mmol/L Carbon Dioxide Level 28 21-32 mmol/L Blood Urea Nitrogen 20 H 7-18 mg/dL Creatinine 1.2 0.5-1.3 mg/dL Glomerular Filtration Rate Calc 60 >90 mL/min Random Glucose 96 70-105 mg/dL Total Calcium 9.1 8.5-10.1 mg/dL Thyroid Stimulating Hormone (TSH) 1.68 # 0.36-3.74 uIU/mL Free Thyroxine (T4) Direct 0.77 0.76-1.46 ng/dL Phosphorus Level 3.2 2.5-4.9 mg/dL Magnesium Level 1.60 L 1.80-2.40 mg/dL Procalcitonin < 0.05 L 0.05-0.5 ng/mL Total Bilirubin 0.7 0.2-1.0 mg/dL Aspartate Amino Transf (AST/SGOT) 19 10-37 U/L Alanine Aminotransferase (ALT/SGPT) 17 12-78 U/L Alkaline Phosphatase 124 50-136 U/L Total Creatine Kinase 41 # 21-232 U/L Total Protein 7.0 6.0-8.3 g/dL Albumin 4.0 3.5-5.0 g/dL Lipase 65 16-77 U/L DIAGNOSTICS / RADIOLOGY RESULTS: [ ] PLAN NEURO: Minimize central acting medications as possible. Maintain fall precautions, adequate lighting during the day PULMONARY: Supplemental 02 as needed. Maintain aspiration precautions at all times CARDIOVASCULAR: Follow hemodynamics. Vital signs per facility protocol GI & NUTRITION: Continue with nutritional support. Continue stool softeners and laxatives as needed. KIDNEYS & ELECTROLYTES: Strict monitoring of intake, output and overall fluid balance. Avoid nephrotoxic medications to the extent possible. Medications to be dosed according to renal function. Monitor electrolytes and replace as needed ENDOCRINE: Maintain blood glucose between 100-180 at all times. Hypoglycemia protocol in place INFECTIOUS DISEASE: Trend temperature, WBC and procalcitonin level Follow cultures, deescalate antibiotics as soon as possible. Panculture if new onset fever ONCOLOGY/HEMATOLOGY/COAGULATION: Monitor for s/s of bleeding Monitor hemoglobin, coagulation studies as needed SKIN: Pressure ulcer prevention per facility protocol Specialty mattress ORTHO/REHAB: Continue PT/OT Prophylaxis: Continue GI and DVT prophylaxis Code Status: Full Resuscitation Disposition: TBD Other: Total patient care time exceeds 35 minutes excluding all procedures. MITESH OAKLEY Mar 16, 2025 12:47
[2025-03-16 16:00] VITALS: BP 124/69; PULSE 63; RESP 17; TEMP 97.5
--- NOTE | 2025-03-16 16:35 | NUR ---
Nutritional Note: Chart, meds, and labs Reviewed. Pt reports decreased appetite and poor PO intake due to abdominal discomfort and constipation. Pt reports not having a good appetite and recent unintentional wt loss. NFPE: Mild to moderate fat muscle loss noted at chest and clavicle; well-nourished appearance in some areas Recommend: -Continue heart healthy diet -Encourage oral intake -Monitor appetite stimulant response Megace -Esnure 1 can PRN and w/ am tray - Electrolyte replacements per protocol -Monitor feeding tolerance, %, wt, and labs -Document PO intake and wt daily. -If No BM >3days consider bowel stimulant. -Schedule outpatient RD f/u for long-term nutrition care. - Notify RD if additional nutrition concerns arise. SEE RD Nutritional Assessment for additional assessment information. Addendum: 03/16/25 at [address] Amended: Links added.
[2025-03-16 20:00] VITALS: BP 113/62; PULSE 57; RESP 17; TEMP 97.7; O2SAT 95
[2025-03-16] MEDS: MAGNESIUM OXIDE 400 MG TABLET PO SCH (20:36)
[2025-03-17] VITALS: BP 154/78; PULSE 57; RESP 17; TEMP 98
[2025-03-17 04:00] VITALS: BP 117/65; PULSE 57; RESP 17; TEMP 98
[2025-03-17 05:20] LABS: NUCLEATED RED BLOOD CELLS 0.0 % (0.0-0.19); PLATELET COUNT (AUTO) 129.0 K/uL (130-400); RED BLOOD CELL COUNT(AUTO) 4.38 MIL/uL (4.50-6.20); RED CELL DISTRIBUTION WIDTH 12.7 % (11.0-15.5); WHITE BLOOD COUNT (AUTO) 5.0 K/uL (4.8-10.8)
[2025-03-17 05:40] LABS: CREATININE 1.2 mg/dL (0.5-1.3); GLOMERULAR FILTR. RATE CALC 60.0 mL/min (>90); GLUCOSE,RANDOM 94.0 mg/dL (70-105); SODIUM SERUM 142.0 mmol/L (136-145); UREA NITROGEN, BLOOD 23.0 mg/dL (7-18)
[2025-03-17 08:00] VITALS: BP 123/75; PULSE 60; RESP 17; TEMP 98
[2025-03-17] MEDS ORDERED: MAGNESIUM OXIDE 400 MG TABLET PO SCH (09:00)
[2025-03-17] MEDS: Cholecalciferol (Vitamin D3) 125 MCG PO SCH (09:00)
[2025-03-17] MEDS: CYANOCOBALAMIN (VITAMIN B-12) 1,000 MCG TABLET PO SCH (09:06)
[2025-03-17] MEDS: MEGESTROL 400 MG/10 ML UDCUP PO SCH (09:14)
[2025-03-17 11:57] VITALS: BP 101/53; PULSE 66; RESP 17; TEMP 97.9
[2025-03-17] MEDS ORDERED: BISA-72 PO (14:09)
--- NOTE | 2025-03-17 14:15 | DS ---
[facility] DISCHARGE SUMMARY Date Patient Seen: Mar 17, 2025 Time of Visit: 14:10 Supervising Physician: Dr. Hebert Primary Care Physician: Kp Camp Outpatient Specialists: [ ] Inpatient Consults: [ ] HOSPITAL COURSE: HPI (per admitting provider) Patient is an 85-year-old male with a past medical history significant For CAD status post CABG, seizure disorder, and PID, who came to the emergency room after several episodes of severe abdominal pain worsening over the last few days. Patient states that he has actually had this pain since his hernia repair X two. This was approximately a year and a half ago. Patient now with a palpable hernia just right of the midline in the suprapubic region. Hernia is reducible, patient denies discomfort unless he moves and engages his core. We will order CT of the abdomen at this time to further evaluate the patient's etiology of pain. TSH and T4 labs in the morning. Patient also described anorexia, states that he just does not have an appetite. States that he was started on a medication once daily lysed PCP but can not recall the name only that it starts with an M, possibly Megace. at bedside was advised of the current treatment plan and she expressed understanding. Patient will also receive physical therapy on this admission. The patient was treated for the following problems: Patient was admitted and evaluated for abdominal pain and general body weakness. Patient was also found to be anorexic, started on Megace b.i.d. on this admission, currently taking Megace daily at home and advised to continue upon discharge. General surgery was consulted on this patient for evaluation of hernias on CT scan, patient at this time is pain-free, and we will be discharging continue to follow up with General surgery as outpatient. Advised to continue with stool softeners this patient's pain is increased when bearing down in the restroom. Explained to avoid Valsalvas continue with laxative continue with Megace. ACTIVE PROBLEM LIST FOR THE HOSPITALIZATION: Unspecified abdominal pain General body weakness Anorexia Dehydration Constipation CHRONIC PROBLEMS: continue previous management per PCP unless otherwise indicated Frequent falls at home Electrolyte derangements DJD with cervical spine spondylosis. 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 PCP notified of patients admission, hospital course and discharge. PHYSICAL EXAM: GENERAL: alert, weak, awake oriented x 3 HEENT: EOMI, Sclera non icteric, moist mucosa NECK: Supple, no JVD, trachea midline LUNGS: Clear breath sounds bilaterally. No wheezes HEART: Regular rate and rhythm. Normal S1 and S2, without murmurs ABD: Abdomen soft, nontender. Bowel sounds present EXT: No clubbing cyanosis or edema NEURO: Alert and oriented to person, follows commands FOLLOW-UP: Follow-up with PCP in 2-3 days RECOMMENDATIONS: See Discharge Instructions This case was seen and discussed with my supervising physician. More than 30 minutes spent on discharge process, including evaluation of the patient, discussion with nursing staff, medication reconciliation and follow-up appointments MITESH OAKLEY Mar 17, 2025 14:15
== END 2025-03-17 16:15 | disposition home or self-care (01) ==
LOC: EDH 16:23 → EDHIP 22:01 → INTOOBSV 22:01 → UNDOADMOB 22:01 → EDHIP 03-15 00:15 → 3AH 03-15 22:21
PROVIDERS: ADMIT Internal Medicine Critical Care Medicine; ATTEND Internal Medicine Critical Care Medicine
DX: K59.00 Constipation, unspecified (principal); E86.0 Dehydration; E87.8 Other disorders of electrolyte and fluid balance, not elsewhere classified; R63.0 Anorexia; M79.10 Myalgia, unspecified site; E78.00 Pure hypercholesterolemia, unspecified; R29.6 Repeated falls; I25.10 Atherosclerotic heart disease of native coronary artery without angina pectoris; G40.909 Epilepsy, unspecified, not intractable, without status epilepticus; R10.30 Lower abdominal pain, unspecified; M47.812 Spondylosis without myelopathy or radiculopathy, cervical region; R79.89 Other specified abnormal findings of blood chemistry; D68.59 Other primary thrombophilia; I73.9 Peripheral vascular disease, unspecified; I10 Essential (primary) hypertension; G89.29 Other chronic pain; Z90.49 Acquired absence of other specified parts of digestive tract; Z95.1 Presence of aortocoronary bypass graft; Z66 Do not resuscitate; Z86.73 Personal history of transient ischemic attack (TIA), and cerebral infarction without residual deficits; Z79.899 Other long term (current) drug therapy; Z68.20 Body mass index [BMI] 20.0-20.9, adult
CPT/HCPCS: 96374; 96375; 99284; 82550; 80053; 83690; 85025 ×2; 93005; 81003; 83735 ×2; 84100; 80048 ×3; 80305; 36415 ×3; 74176; 84145; 84443; 85027 ×2; 84439; 97161; 97116 ×2; J7030; J2405; J2470; G0378 ×55; 99285

== ENCOUNTER → 2025-03-31 | Outpatient (CLI) | payer OTHER ==
[~2025-03-31] MED LIST changes: +BISA-72 PO; +FINA5TAB41 PO; +MIRT-22 PO
[2025-03-31] MEDS: REGADENOSON 0.4 MG/5 ML PF SYG IVP ONE (12:34)
--- NOTE | 2025-04-14 08:50 | HMCSR ---
APPROVED REPORT Height: 6 ft 0in Weight: 163 lbs TEST INDICATIONS CAD The imaging protocol used to acquire images was Rest Tc-99m/stress Tc-99m 1 day Consent: The procedure was explained and understood by the patient. Informerd consent was witnessed Alida Steiner RN First, low dose rest was performed then high dose stress. RESTING DATA: The resting ekg shows: NSR Rest SPECT myocardial perfusion imaging was performed in supine position minutes following the intra venous injection of 11 mCi of Tc-99 Sestamibi. Time of rest injection: 11:05: Date: 03/31/2025 PHARMACOLOGIC STRESS: Pharmacologic stress test was performed by injecting regadenoson 0.4 mg IV push followed by the intra venous injection of 30 mCi of Tc-99 Sestamibi. Time of stress injection: 12:55: Date: 03/31/2025 Heart Rate at time of stress injection: 67 bpm. Gated Stress SPECT was performed 60 minutes after stress injection. The images were gated to evaluate regional wall motion and calculate left ventricular ejection fracti on. STRESS DETAILS Reason for Termination: Dyspnea Stress Symptoms: Dyspnea Max HR Achieved: 83 bpm % of APMHR Achieved: 71 Max Blood Pressure: 120/66 mmHg Stress ECG: NSR LEFT VENTRICLE Size: The left ventricular size is normal. Systolic Function:The left ventricular systolic function is mildly decreased. Wall Motion: Inferior akinesis. The left ventricular ejection fraction was calculated to be 50%.TID = . LV PERFUSION Fixed infero-lateral, and infero-septal defects. Conclusion The left ventricular size is normal. The left ventricular systolic function is mildly decreased. Inferior akinesis. Fixed infero-lateral, and infero-septal defects. The left ventricular ejection fraction was calculated to be 50%.
== END | disposition home or self-care (01) ==
LOC: RAH 10:23
PROVIDERS: ATTEND Internal Medicine Cardiovascular Disease
DX: I25.10 Atherosclerotic heart disease of native coronary artery without angina pectoris (principal); R07.9 Chest pain, unspecified; R06.00 Dyspnea, unspecified
CPT/HCPCS: 78452; 93017; J2785; A9500 ×2

== ENCOUNTER 2025-07-02 17:53 | Emergency (ER) | payer OTHER ==
[~2025-07-02] VITALS: Ht 182.9 cm; Wt 72.6 kg
[2025-07-02 18:18] LABS: IMMATURE GRANULOCYTE ABSOLUTE 0.05 K/uL (0-1); NUCLEATED RED BLOOD CELLS 0.0 % (0.0-0.19); PLATELET COUNT (AUTO) 153 K/uL (130-400); RED BLOOD CELL COUNT(AUTO) 4.83 MIL/uL (4.50-6.20); RED CELL DISTRIBUTION WIDTH 12.5 % (11.0-15.5); WHITE BLOOD COUNT (AUTO) 5.5 K/uL (4.8-10.8)
--- NOTE | 2025-07-02 18:18 | EKG ---
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
--- NOTE | 2025-07-02 18:20 | ERN ---
ED Note History of Present Illness Stated Complaint: SEIZURE Chief Complaint: Seizure Time Seen by MD: 18:01 Time Seen by Midlevel: 18:05 Dictation: Mr Merida is a 85 year gentleman with history of CAD/CABG, Hypertension, Hyperlipidemia, DVT, CVA (left sided residual weakness), GERD, AKIACHAK, gout, and chronic abdominal pain who presented to the Emergency Department this evening f or evaluation of seizure. According to patients . He was sitting down waiting to eat his dinner when he became anxious. She states that he would stand up and then sit down over and over again and stated "somethings wrong". She stated he had just taken his evening dose Keppra 1000mg. She states he had seizure but did not fall. He did not bite his tongue and was not incontinent. He has been sleeping well. His There was no report of recent illness, fever, chills, shortness of breath, cough, chest pain, palpitations, edema, abdominal pain, nausea, vomiting, hematemesis, constipation, diarrhea, melena, hematochezia, dysuria, headache, dizziness, no dysarthria or dysphasia. He is alert and oriented x 3 with appropriate responses after the postictal period. Speech is clear. Pupils are small but equal, round, and reactive to light. He has no facial asymmetry. He has chronic left-sided weakness noted, consistent with prior CVA; no new focal deficits. Sensation intact to light touch in all extremities. Gait deferred due to recent seizure activity but lower extremity motor function intact and symmetric or relative to baseline. No meningeal signs. PCP: Dr. Kp Camp Neurologist: None Allergies: Coded Allergies: No Known Drug Allergies (Verified Allergy, 07/22/12) Home Meds Active Scripts Mupirocin (Bactroban 2% Oint) 2 % Oint, 1 APPL TP TID for 7 Days, #22 GM 0 Refills apply to affected area(s) Prov:KRISHNA BRADLEY CARPET INSTALLATION SPECIALIST 07/02/25 Cephalexin (Cephalexin) 500 Mg Tablet, 1 TAB PO BID for 10 Days, #20 TAB 0 Refills Prov:KRISHNA BRADLEY CARPET INSTALLATION SPECIALIST 07/02/25 Bisacodyl (Dulcolax) 5 Mg Tablet.dr, 5 MG PO BID, #60 TAB Prov:MITESH OAKLEY PAC 03/17/25 Cephalexin Monohydrate (Keflex) 500 Mg Cap, 500 MG PO BID for 7 Days, #28 CAP Prov:IMTIAZ COLVIN CARPET INSTALLATION SPECIALIST 01/22/24 Reported Medications Finasteride (Finasteride) 5 Mg Tablet, 1 TAB PO DAILY 03/15/25 Mirtazapine (Mirtazapine) 15 Mg Tablet, 1 TAB PO HS 03/15/25 Magnesium Oxide (Magnesium) 500 Mg Capsule, 500 MG PO DAILY, CAP 12/22/23 Cholecalciferol (Vitamin D3) (Vitamin D3) 125 Mcg (5000 Unit) Tablet, 125 MCG PO DAILY, TAB 12/22/23 Cyanocobalamin (Vitamin B-12) (Vitamin B12) 1,000 Mcg Tablet, 1000 MCG PO DAILY, TAB 12/22/23 Lactulose (Lactulose) 10 Gram/15 Ml Solution, 10 GM PO AD PRN for CONSTIPATION, ML 12/22/23 Tramadol Hcl (Tramadol HCl) 50 Mg Tablet, 50 MG PO AD PRN for PAIN, TAB 12/22/23 Alfuzosin HCl (Alfuzosin HCl) 10 Mg Tab.er.24h, 10 MG PO HS, TAB 12/22/23 Pravastatin Sodium (Pravastatin Sodium) 80 Mg Tablet, 80 MG PO HS, TAB 12/22/23 Allopurinol (Allopurinol) 300 Mg Tablet, 300 MG PO HS, TAB 12/22/23 Clopidogrel Bisulfate (Clopidogrel) 75 Mg Tablet, 75 MG PO QODAY, TAB 12/22/23 Gemfibrozil (Gemfibrozil) 600 Mg Tablet, 600 MG PO BID, TAB 12/22/23 Metoprolol Succinate (Metoprolol Succinate) 25 Mg Tab.er.24h, 25 MG PO DAILY, TAB 12/22/23 Levetiracetam (Keppra) 1,000 Mg Tablet, 1000 MG PO BID, TAB 12/22/23 Past Medical History Past Medical History: CAD, CVA, DVT, GERD, High Cholesterol, Heart Disease, Hyp ertension, Kidney Stone, Seizure, Stroke Additional Past Medical Hx: CHRONIC ABD PAIN, LT SIDE WEAKNESS, GOUT, BPH Surgical History: Cholecystectomy, CABG, Other Surgical History Other: AAA REPAIR, CAROTID STENT, FEMORAL STENT, HERNIA REPAIR, PSYCH History: no pertinent psych hx Family History: HTN Social History: Negative, Lives with family (Lives with ) RN Note Reviewed/Agreed w/PFSH: Yes Review of System Dictation REVIEW OF SYSTEMS: CONSTITUTIONAL: Patient denies fevers, chills, sweats and weight changes. Reports fatigue and general weakness. EYES: Patient denies any visual symptoms. EARS, NOSE, AND THROAT: No difficulties with hearing. No symptoms of rhinitis or sore throat. CARDIOVASCULAR: Patient denies chest pains, palpitations, orthopnea and paroxysmal nocturnal dyspnea. RESPIRATORY: No dyspnea on exertion, no wheezing or cough. GI: No nausea, vomiting, diarrhea, constipation, abdominal pain, hematochezia or melena. : No urinary hesitancy or dribbling. No nocturia or urinary frequency. No abnormal urethral discharge. MUSCULOSKELETAL: No myalgias or arthralgias. NEUROLOGIC: No chronic headaches. Patient denies numbness, tingling or weakness. He has slight weakness to left side post CVA. reports seizure and then seemed "out of it". He had his evening dose Keppra 1000mg just prior to seizure. PSYCHIATRIC: Patient denies problems with mood disturbance. No problems with anxiety. ENDOCRINE: No excessive urination or excessive thirst. DERMATOLOGIC: Reports ulceration to right ear ear Initial Vital Sign VS Vital Signs Date Time Temp Pulse Resp B/P (MAP) Pulse Ox O2 Delivery O2 Flow Rate FiO2 07/02/25 17:54 98.6 79 18 127/73 97 07/02/25 18:18 Room Air* 0 21 Physical Exam Dictation Vital signs: Reviewed. Afebrile Constitutional: No acute distress. at bedside. Head/Face: Normocephalic, atraumatic. Eyes: Periorbital areas with no swelling, redness, or edema. Lids and lashes are normal. Conjunctival injection is absent. Sclera anicteric. Pupils equal, round, reactive to light. ENT: Ulceration noted to right ear (see integumentary section). Ear canals clear and no discharge. TMs no erythema. No nasal discharge or bleeding noted. Oropharynx with no exudate, redness, swelling, masses, exudates, or evidence of obstruction. Uvula midline. Mucous membranes moist. Neck: Trachea midline, no masses palpated, and no cervical lymphadenopathy. No swelling. Supple, full range of motion. Chest/Axilla: No tenderness, no crepitus, no paradoxical movement, no retractions. Cardiovascular: Regular rate, regular rhythm, no murmur, no gallops. Symmetric pulses. No peripheral edema. Normotensive; 135/75 Respiratory: Respirations even and unlabored. Lung sounds clear; no wheezes, rales or rhonchi. Room air spo2 96% Gastrointestinal: Inspection is normal. No distention is appreciated. Bowel sounds are normal. No mass or organomegaly . There is no tenderness. No rebound. No rigidity. No voluntary or involuntary guarding. No Damon's sign. Neurological: He is alert and oriented x3 with appropriate responses after the postictal period. Speech is clear. Pupils are small but equal, round, and reactive to light. He has no facial asymmetry. He has chronic left-sided weakness noted, consistent with prior CVA; no new focal deficits. Sensation intact to light touch in all extremities. Gait deferred due to recent seizure activity but lower extremity motor function intact and symmetric or relative to baseline. No meningeal signs. Musculoskeletal/Extremities: All extremities have full range of motion, no pain or tenderness on palpation. Symmetric pulses. Integumentary: Skin is normal color, warm and dry. Cap refill less than 3 seconds. There is a 1 cm circular ulcerated lesion to the posterior upper aspect of the right ear. The wound appears deeper than a superficial excoriation, with a moist, erythematous base. There was no purulent drainage, fluctuance, or active bleeding. Surrounding skin shows mild erythema but no lymphangitic streaking. No exposed cartilage noted. Results (Laboratory/Radiology) Laboratory/Radiology Laboratory Tests Test 07/02/25 18:10 07/02/25 19:15 White Blood Count 5.5 K/uL (4.8-10.8) Red Blood Count 4.83 MIL/uL (4.50-6.20) Hemoglobin 16.3 g/dL (14.0-18.0) Hematocrit 47.3 % (42-54) Mean Corpuscular Volume 97.9 fL (79-99) Mean Corpuscular Hemoglobin 33.7 pg (27.0-33.0) H Mean Corpuscular Hemoglobin Concent 34.5 g/dL (32.0-36.0) Red Cell Distribution Width 12.5 % (11.0-15.5) Platelet Count 153 K/uL (130-400) Mean Platelet Volume 9.2 fL (7.5-10.5) Immature Granulocyte % (Auto) 0.9 % (0-1) Neutrophils (%) (Auto) 68.8 % (40.0-77.0) Lymphocytes (%) (Auto) 21.1 % (21.0-51.0) Monocytes (%) (Auto) 7.6 % (3.0-13.0) Eosinophils (%) (Auto) 1.1 % (0.0-8.0) Basophils (%) (Auto) 0.5 % (0.0-5.0) Neutrophils # (Auto) 3.8 K/uL (1.8-7.7) Lymphocytes # (Auto) 1.2 K/uL (1.0-4.8) Monocytes # (Auto) 0.4 K/uL (0.1-1.0) Eosinophils # (Auto) 0.06 K/uL (0.00-0.70) Basophils # (Auto) 0.03 K/uL (0.00-0.20) Absolute Immature Granulocyte (auto 0.05 K/uL (0-1) Nucleated Red Blood Cells 0.0 % (0.0-0.19) Sodium Level 138 mmol/L (136-145) Potassium Level 4.1 mmol/L (3.5-5.1) Chloride Level 103 mmol/L (101-111) Carbon Dioxide Level 24 mmol/L (21-32) Blood Urea Nitrogen 26 mg/dL (7-18) H Creatinine 1.5 mg/dL (0.5-1.3) H Glomerular Filtration Rate Calc 46 mL/min (>90) Random Glucose 144 mg/dL (70-105) H Total Calcium 9.3 mg/dL (8.5-10.1) Total Bilirubin 0.6 mg/dL (0.2-1.0) Direct Bilirubin 0.2 mg/dL (0.0-0.3) Aspartate Amino Transf (AST/SGOT) 15 U/L (10-37) Alanine Aminotransferase (ALT/SGPT) 13 U/L (12-78) Alkaline Phosphatase 115 U/L (50-136) Troponin I High Sensitivity 13 ng/L (4-75) Total Protein 7.2 g/dL (6.0-8.3) Albumin 3.9 g/dL (3.5-5.0) Urine Color YELLOW (YELLOW) Urine Appearance CLEAR (CLEAR) Urine pH 5.5 (5.0-8.0) Urine Specific [place] 1.023 (1.001-1.031) Urine Protein 10 mg/dL (NEGATIVE) H Urine Glucose (UA) NEGATIVE mg/dL (NEGATIVE) Urine Ketones NEGATIVE mg/dL (NEGATIVE) Urine Occult Blood NEGATIVE (NEGATIVE) Urine Nitrate NEGATIVE (NEGATIVE) Urine Bilirubin NEGATIVE mg/dL (NEGATIVE) Urine Urobilinogen 0.2 mg/dL (0.2-1.0) Urine Leukocyte Esterase NEGATIVE Ghada/uL Urine RBC None Seen /HPF (0-1) Urine WBC 0-1 /HPF (0-1) Urine Bacteria Rare /HPF (None Seen) Labs Reviewed?: Yes EKG Comment: EKG Interpretation: Time Reviewed: 1809 Ventricular rate: 64 bpm [place] Interval: 167 ms QRS duration: [address] segment elevation or depression. Clinical impression: sinus rhythm EKG Reviewed and interpreted by Dr. Galen Rankin CT Scan Comment: PATIENT: NOEMÍ MERIDA MR#: [id number] : 1940 SEX: M AGE: 85 LOCATION: [facility] ORDER 10 STATUS: [facility] REPORT#: [id number] SERVICE 09 REASON: break through seizure ORDERING PHYSICIAN: KRISHNA BRADLEY PROCEDURE: HEAD WO - CT HEAD/BRAIN W/O CONTRAST EXAM: CT Head Without IV contrast. CLINICAL HISTORY: break through seizure TECHNIQUE: Axial computed tomography images of the head/brain without intravenous contrast. COMPARISON: None provided. FINDINGS: BRAIN: No acute bleed or infarct. Chronic ischemic and atrophic changes. 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 VENTRICLES: No hydrocephalus. ORBITS: The orbits are unremarkable. SINUSES AND MASTOIDS: The paranasal sinuses and mastoid air cells are clear. BONES: Postsurgical changes from a prior right suboccipital craniectomy. SOFT TISSUES: Unremarkable. IMPRESSION: 1. No acute bleed or infarct. Chronic ischemic and atrophic changes. 2. 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 3. Postsurgical changes from a prior right suboccipital craniectomy. /[place] DICTATED BY: LILIANA ROMERO MD DATE: 07/02/251940 ELECTRONICALLY SIGNED BY: LILIANA ROMERO MD DATE: 07/02/251940 ED Course ED Course Orders Procedure Category Date Status Time Cbc With Differential LAB 07/02/25 Complete 18:10 Basic Metabolic Panel LAB 07/02/25 Complete 18:10 Hepatic Function Panel LAB 07/02/25 Complete 18:10 Urinalysis Profile LAB 07/02/25 Complete 18:10 Troponin I High LAB 07/02/25 Complete Sensitivity 18:10 12 Lead Ekg Tracing- EKG 07/02/25 Resulted Technical 18:10 Ct Head/Brain W/O CT 07/02/25 Resulted Contrast 18:10 Fall Precautions CPOE 07/02/25 Transmitted 18:10 Seizure Precautions CPOE 07/02/25 Transmitted 18:10 Saline Lock Iv CPOE 07/02/25 Transmitted 18:10 Levetiracetam 500 PHA 07/02/25 Complete Mg/5 M[address] V (Keppra 5 19:30 Mag/Alum/Simeth 30ml PHA 07/02/25 Complete (Maalox Plus 30ml) 21:15 Alprazolam 0.25mg PHA 07/02/25 Complete (Xanax 0.25mg) 23:00 Current Medications Medications (Trade) Dose Ordered Sig/Catrachito Route PRN Reason Start Time Stop Time Status Last Admin Dose Admin Al Hydroxide/Mg Hydroxide (MAALox PLUS 30ML) 30 ml ONCE ONCE PO 07/02/25 21:15 07/02/25 21:16 DC 07/02/25 21:20 Alprazolam (XANax 0.25MG) 0.25 mg ONCE ONCE PO 07/02/25 23:00 07/02/25 23:01 DC 07/02/25 22:37 Levetiracetam (kepPRA 500 MG/5 ML SD VIAL) 1,000 mg ONCE ONCE IV 07/02/25 19:30 07/02/25 19:31 DC 07/02/25 19:39 Vital Signs Date Time Temp Pulse Resp B/P (MAP) Pulse Ox O2 Delivery O2 Flow Rate FiO2 07/03/25 00:10 97.2 59 18 133/74 95 Room Air* 0 21 07/02/25 22:20 97.2 59 18 143/85 97 Room Air* 0 21 07/02/25 20:17 97.9 57 18 135/57 96 Room Air* 0 21 07/02/25 18:18 97.5 64 18 135/75 95 Room Air* 0 21 07/02/25 17:54 98.6 79 18 127/73 97 Vital signs remained stable. He is alert and awake; oriented to person place and time. Follows commands. No further seizure activity. Noncontrast CT scan of the brain with no acute changes. There are chronic ischemic changes, old right cerebellar infarct with encephalomalacia, and postsurgical changes from prior right craniotomy. Laboratory findings as noted below. No elevation of WBCs. H&H are stable. BUN/CR 26/1.5, glucose 144, and troponin is negative. Twelve lead EKG reflects a sinus rhythm without ST-elevation. While in the ED he received dose Keppra 1000mg some mentions some discomfort to his right ear. He has an approximately 1 cm circular ulcerated lesion to the posterior upper aspect of the ear. The wound appears deeper superficial excoriation with a moist, erythematous base. There is no purulent drainage, fluctuance, or active bleeding. Surrounding skin shows mild erythema but no lymphangitic streaking. No exposed cartilage noted. Wound was cultured and will start on oral antibiotic he can follow up with his PCP. Medical Decision Making MDM MDM: Differential diagnosis: Breakthrough seizure, intracranial hemorrhage, Intracranial mass, infectious process, electrolyte derangement, dehydration Rationale: Tests considered and ordered secondary to shared decision making include: Lab, CT, EKG Previous outside records reviewed: Old ER visits. Risk of complication and/or morbidity or mortality of patient management: None Medications-Per medication reconciliation Need for hospitalization: Patient does not meet criteria for hospitalization. Need for emergency major/minor surgery: No There are no social concerns with this patient. Prescription drug management: Cephalexin, Bactroban Prescriptions will include symptomatic care Patient's prior external medical records from other ER visits were reviewed by me as indicated. Prior testing and results from previous visits were reviewed. Prior tests were taken into account with medical decision making and resource utilization, independent historian/historians were used to obtain complete medical history. I independently interpreted the test that were performed, results were reviewed by me and considered findings on radiology if ordered. Medical management and examination interpretation discussions were had by me with other qualified healthcare professionals as indicated for the patient's care. DX & DISP Disposition: Discharge Departure Impression: Primary Impression: Breakthrough seizure Additional Impressions: Ear lesion, Ulcer right ear external Condition: Stable Scripts Mupirocin (Bactroban 2% Oint) 2 % Oint 1 APPL TP TID for 7 Days, #22 GM 0 Refills apply to affected area(s) Prov: VINICIUSRADHAKRISHNA DURBIN 07/02/25 Cephalexin (Cephalexin) 500 Mg Tablet 1 TAB PO BID for 10 Days, #20 TAB 0 Refills Prov: KRISHNA BRADLEY Armand HEARTP 07/02/25 Additional Instructions: You should continue your current Keppra schedule at home; starting tomorrow. No dose changes were made today. You have a small but deeper skin lesion behind your ear that may be starting to get infected. Start Keflex 500 mg by mouth twice daily for seven days. Keep the area clean and dry. Wash gently with mild soap and water once daily and pat dry. Apply Bactroban ointment. Avoid scratching or picking at the site. Return for worsening redness, swelling drainage, odor, fever, or increased pain Follow up with your primary care provider for routine seizure management and to recheck the ear lesion. Referrals: KP CAMP MD (PCP) Time of Disposition: 19:52 ATTESTATION BY PHYSICIAN I PERFORMED THE SUBSTANTIVE PORTION OF THE VISIT. I HAVE REVIEWED AND PERSONALLY MADE AND APPROVED THE MANAGEMENT PLAN THAT IS DOCUMENTED IN THE NOTE BY MYSELF FOR THE A PP. KRISHNA BRADLEY Jul 02, 2025 18:20 HUNTER PAYNE MD Jul 05, 2025 07:36
[2025-07-02 18:28] LABS: CREATININE 1.5 mg/dL (0.5-1.3); GLOMERULAR FILTR. RATE CALC 46.0 mL/min (>90); GLUCOSE,RANDOM 144.0 mg/dL (70-105); SODIUM SERUM 138.0 mmol/L (136-145); UREA NITROGEN, BLOOD 26.0 mg/dL (7-18)
[2025-07-02 18:33] LABS: ASPARTATE AMINOTRANSFERASE 15.0 U/L (10-37); TOTAL PROTEIN, SERUM 7.2 g/dL (6.0-8.3)
--- NOTE | 2025-07-02 18:42 | HMCIMG ---
EXAM: CT Head Without IV contrast. CLINICAL HISTORY: break through seizure TECHNIQUE: Axial computed tomography images of the head/brain without intravenous contrast. COMPARISON: None provided. FINDINGS: BRAIN: No acute bleed or infarct. Chronic ischemic and atrophic changes. 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 VENTRICLES: No hydrocephalus. ORBITS: The orbits are unremarkable. SINUSES AND MASTOIDS: The paranasal sinuses and mastoid air cells are clear. BONES: Postsurgical changes from a prior right suboccipital craniectomy. SOFT TISSUES: Unremarkable. IMPRESSION: 1. No acute bleed or infarct. Chronic ischemic and atrophic changes. 2. 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 3. Postsurgical changes from a prior right suboccipital craniectomy. /[place]
[2025-07-02 19:26] LABS: APPEARANCE,URINE CLEAR (CLEAR); GLUCOSE, URINE (UA) NEGATIVE (NEGATIVE); LEUKOCYTE ESTERASE ,URINE NEGATIVE Leu/uL (NEGATIVE); NITRATE,URINE NEGATIVE (NEGATIVE); OCCULT BLOOD,URINE NEGATIVE (NEGATIVE)
[2025-07-02 19:32] LABS: ADD UA MICROSCOPIC YES
[2025-07-02] MEDS: MAG/ALUM/SIMETH 30 ML UDCUP PO ONE (21:20)
[2025-07-03 00:10] VITALS: BP 133/74; PULSE 59; RESP 18; TEMP 97.2; O2SAT 95
== END 2025-07-03 00:45 | disposition home or self-care (01) ==
LOC: EDH 17:53
DX: G40.909 Epilepsy, unspecified, not intractable, without status epilepticus (principal); L98.46 Non-pressure chronic ulcer of face; E78.00 Pure hypercholesterolemia, unspecified; I11.9 Hypertensive heart disease without heart failure; I25.10 Atherosclerotic heart disease of native coronary artery without angina pectoris; Z79.899 Other long term (current) drug therapy; Z86.718 Personal history of other venous thrombosis and embolism; Z86.73 Personal history of transient ischemic attack (TIA), and cerebral infarction without residual deficits; Z87.442 Personal history of urinary calculi; Z90.49 Acquired absence of other specified parts of digestive tract; Z95.1 Presence of aortocoronary bypass graft; Z98.890 Other specified postprocedural states
CPT/HCPCS: 99284; 96374; 70450; 80076; 84484; 80048; 85025; 81001; 36415; 93005; J1953 ×2; 96365